=== PATIENT | male | born 1970 | race African-American/Black ===

== ENCOUNTER → 2017-09-06 | Emergency (ER) | payer OTHER ==
[~2017-09-06] VITALS: Ht 188 cm; Wt 231.3 kg
[~2017-09-06] MED LIST: ACETAMINOPHEN-1 EAC1 ORAL; ASPIRIN81 MG ORAL; AUGMENTIN 875-1 EAC1 ORAL; FUROSEMIDE20 M1 ORAL; FUROSEMIDE40 MG ORAL; HYDROcodone/Acetamin 10/325 tab ORAL ONE; IBUPROFEN600 MG ORAL; LISINOPRIL20 MG ORAL; LISINOPRIL40 MG ORAL; LISINOPRIL5 MG ORAL; METOPROLOL SUCC50 MG ORAL; TRUFORM COMPRE1 EACH MC
--- NOTE | 2017-09-06 17:39 | Emergency Room Report ---
History of Present Illness General Chief Complaint: Upper Extremity Injury Source: Patient Present Illness HPI 47-year-old male presents to the emergency department complaining of 8/10 in severity localized sharp/stabbing pain to the right hand at the base of the thumb x2 days. Patient states that he status post fall from couch when he was sleeping. Patient reports swelling, tenderness and constant pain. Patient denies open wounds, erythema, fevers, chills, increasing temperature to palpation. Denies neck or back pain. He is left-hand dominant. Denies numbness tingling or loss of sensation or gross motor movements of the extremities, incontinence of bowel or bladder. Denies CP, Palpitations, LOC, AMS , dizziness, Changes in Vision, Sensation, paresthesias, or a sudden severe headache. Allergies: Coded Allergies: No Known Allergies (Unverified , 02/15/15) Patient History Past Medical History: see triage record Past Surgical History: none Pertinent Family History: none Reviewed Nursing Documentation: PMH: Agreed, PSxH: Agreed Nursing Documentation-PMH Past Medical History: No History, Except For Hx Hypertension: Yes Hx Diabetes: Yes - Borderline Hx Cancer: No Hx Neurological Problems: No Review of Systems All Other Systems: negative except mentioned in HPI Physical Exam Vital Signs Date Time Temp Pulse Resp B/P (MAP) Pulse Ox O2 Delivery O2 Flow Rate FiO2 09/06/18 17:18 98.4 89 18 167/87 92 Room Air 98.4 Sp02 EP Interpretation: reviewed, normal General Appearance: no apparent distress, alert, GCS 15, non-toxic, obese Head: normocephalic, atraumatic ENT: hearing grossly normal, normal voice Neck: full range of motion Respiratory: lungs clear, normal breath sounds, speaking full sentences Cardiovascular #1: regular rate, rhythm, normal capillary refill Musculoskeletal: back normal, gait/station normal, normal range of motion, tender - Right hand TTP, Positive snuff box ttp and pain with axial loading, no erythema , mild swelling noted, NVI. Neurologic: alert, oriented x3, responsive, motor strength/tone normal, sensory intact, speech normal, grossly normal Psychiatric: judgement/insight normal Skin: normal color, no rash, warm/dry, well hydrated Medical Decision Making PA Attestation Dr. lantigua is my supervising Physician whom patient management has been discussed with. Diagnostic Impression: Primary Impression: Scaphoid fracture of wrist Qualified Codes: S62.009A - Unspecified fracture of navicular [scaphoid] bone of unspecified wrist, initial encounter for closed fracture Additional Impression: Hand pain, right ER Course 47-year-old male presents to the emergency department complaining of 8/10 in severity localized sharp/stabbing pain to the right hand at the base of the thumb x2 days. Patient states that he status post fall from couch when he was sleeping. Patient reports swelling, tenderness and constant pain. Patient denies open wounds, erythema, fevers, chills, increasing temperature to palpation. Denies neck or back pain. He is left-hand dominant. Denies numbness tingling or loss of sensation or gross motor movements of the extremities, incontinence of bowel or bladder. Denies CP, Palpitations, LOC, AMS , dizziness, Changes in Vision, Sensation, paresthesias, or a sudden severe headache. Ddx considered but are not limited to Fracture, dislocation, contusion, Sprain/ Strain/Spasm , scaphoid fracture. Vital signs: are WNL, pt. is afebrile H&PE are most consistent with musculoskeletal injury will perform imaging to r/ o fractures/dislocations. ORDERS: - X-ray Right hand 3 views - negative for fx, Dislocation, or significant soft tissue injury, per preliminary read in ED, and signed by MICAH Faust , my supervising physician has reviewed, and agrees with my interpretation. ED INTERVENTIONS: - PO Pain control. - Right Thumb Spika Splint applied by commercial hvac technician. Pt. remains neurovascularly intact. -d/w pt. the need for repeat hand x-rays by his pcp in 2-3 weeks to effectively rule in or out a scaphoid fracture. DISCHARGE: At this time pt. is stable for d/c to home. Will provide printed patient care instructions, and any necessary prescriptions. Care plan and follow up instructions have been discussed with the patient prior to discharge. Other X-Ray Diagnostic Results Other X-Ray Diagnostic Results : X-Ray ordered: Right Hand # of Views/Limited Vs Complete: 3 View Indication: Pain EP Interpretation: Yes MICAH Xray: Interpretation reviewed, by supervising MD, and agrees with findings. Interpretation: no dislocation, no soft tissue swelling, no fractures Impression: No acute disease Electronically Signed by: Rose Mary Faust PA-C Last Vital Signs Date Time Temp Pulse Resp B/P (MAP) Pulse Ox O2 Delivery O2 Flow Rate FiO2 09/06/17 17:18 98.4 89 18 167/87 92 Room Air 98.4 Disposition: HOME, SELF-CARE Condition: Stable Scripts Ibuprofen* (MOTRIN*) 600 Mg Tablet 600 MG ORAL THREE TIMES A DAY, #30 TAB 0 Refills Prov: Rose Mary Faust 09/06/17 Acetaminophen With Codeine (T#3) (TYLENOL #3 TAB*) Y Tab 2 TAB ORAL Q6H Y for For Pain, #10 TAB Prov: Rose Mary Faust 09/06/17 Patient Instructions: Scaphoid Fracture, Wrist Additional Instructions: Take medications as directed. Follow up with a Primary Care Provider in 3-5 days, even if your symptoms have resolved. --Please review list of primary care clinics, if you do not already have a primary care provider REPEAT X-RAYS TO EVAL FOR SCAPHOID FX in 2-3 weeks with your Primary Care Provider Return sooner to ED if new symptoms occur, or current symptoms become worse. Do not drink alcohol, drive, or operate heavy machinery while taking Tylenol #4 as this may cause drowsiness. - Please note that this Emergency Department Report was dictated using Signpostassistant press operator technology software, occasionally this can lead to erroneous entry secondary to interpretation by the dictation equipment. Rose Mary Faust Sep 06, 2017 17:39
[2017-09-06 19:23] VITALS: BP_SYST 152; BP_SYST 167; BP_DIAS 82; BP_DIAS 87
--- NOTE | 2017-09-07 09:09 | Diagnostic Imaging Report ---
Indications: Pain Technique: 3 views of the hand Comparison: None Findings: No acute fractures. No dislocations. Joint spaces are preserved. No radiopaque foreign body. Normal mineralization. Ossific density projects adjacent to the upper pole of the scaphoid. Impression: No acute process Ossific density adjacent to the upper pole of the scaphoid. Significance/etiology uncertain.
== END | disposition home or self-care (01) ==
LOC: EMR 17:50
DX: S62.001A Unspecified fracture of navicular [scaphoid] bone of right wrist, initial encounter for closed fracture (principal); W07.XXXA Fall from chair, initial encounter; Y92.9 Unspecified place or not applicable; I10 Essential (primary) hypertension
CPT/HCPCS: 99283

== ENCOUNTER 2017-11-10 22:43 | Emergency (ER) | payer OTHER ==
[~2017-11-10] VITALS: Ht 188 cm; Wt 254.0 kg
[~2017-11-10 22:43] MED LIST changes: -HYDROcodone/Acetamin 10/325 tab ORAL ONE
--- NOTE | 2017-11-10 23:10 | Emergency Room Report ---
History of Present Illness General Chief Complaint: Lower Extremity Injury Source: Patient Present Illness HPI Patient presents with complaints of discomfort to the back of the left leg Patient reports significant history of psoriasis He does recall scratching a specific area about one month ago since then he has slowly felt increased discomfort some discharge and foul smell Presents with concern of possible gangrene another infection denies any fevers Denies any chest pain or shortness of breath denies any back or flank pain Allergies: Coded Allergies: No Known Allergies (Unverified , 02/15/15) Patient History Past Medical History: see triage record Pertinent Family History: none Reviewed Nursing Documentation: PMH: Agreed; PSxH: Agreed Nursing Documentation-PMH Past Medical History: No History, Except For Hx Hypertension: Yes Hx Diabetes: Yes - Borderline Hx Cancer: No Hx Neurological Problems: No Review of Systems All Other Systems: negative except mentioned in HPI Physical Exam Vital Signs Date Time Temp Pulse Resp B/P (MAP) Pulse Ox O2 Delivery O2 Flow Rate FiO2 11/10/17 22:53 98.5 95 24 144/79 88 Room Air 98.4 Sp02 EP Interpretation: reviewed, normal General Appearance: no apparent distress Head: normocephalic, atraumatic Eyes: bilateral eye PERRL, bilateral eye EOMI ENT: normal pharynx Neck: other - Some kyphosis Respiratory: lungs clear, normal breath sounds Cardiovascular #1: regular rate, rhythm Gastrointestinal: soft, no mass Musculoskeletal: other - There is a approximately 1 x 1 cm area of mild erythema posterior to the left calf area, no obvious fluctuance no obvious gangrene Neurologic: alert, oriented x3 Skin: other - Patient has significant dependent edema, lymphedema bilaterally, significant psoriasis Medical Decision Making Diagnostic Impression: Primary Impression: Cellulitis of lower leg ER Course There is an area on the back of the left leg that appears to be consistent with early cellulitis I do not appreciate any obvious fluctuance Patient will have oral antibiotic provided here and placed on antibiotics for close outpatient follow-up Last Vital Signs Date Time Temp Pulse Resp B/P (MAP) Pulse Ox O2 Delivery O2 Flow Rate FiO2 11/10/17 22:53 98.5 95 24 144/79 88 Room Air 98.4 Status: improved Disposition: HOME, SELF-CARE Condition: Stable Additional Instructions: Patient is provided with the discharge instructions notified to follow up with primary doctor in the next 2-3 days otherwise return to the er with any worsening symptoms. Please note that this report is being documented using DRAGON technology. This can lead to erroneous entry secondary to incorrect interpretation by the dictating instrument. Jethro Magaña DO Nov 10, 2017 23:10
[2017-11-10] MEDS ORDERED: Cephalexin 500mg cap ORAL ONE (23:15)
[2017-11-10] MEDS ORDERED: Bactrim-DS 1 tab ORAL ONE (23:15)
[2017-11-10] MEDS ORDERED: BACTRIM DS TAB1 EAC1 ORAL (23:46)
[2017-11-10] MEDS ORDERED: KEFLEX500 MG ORAL (23:46)
[2017-11-11 00:10] VITALS: BP 142/77
== END 2017-11-11 00:10 | disposition home or self-care (01) ==
LOC: EMR 23:12
DX: L03.116 Cellulitis of left lower limb (principal); L03.115 Cellulitis of right lower limb; I10 Essential (primary) hypertension
CPT/HCPCS: 99282

== ENCOUNTER 2018-07-21 17:07 | Inpatient (IN) | payer OTHER ==
[~2018-07-21] VITALS: Ht 188 cm; Wt 308.4 kg
[~2018-07-21 17:07] MED LIST changes: +BACTRIM DS TAB1 EAC1 ORAL; +KEFLEX500 MG ORAL
[2018-07-21] MEDS ORDERED: Acetaminophen 500mg (ES) tab ORAL ONE (18:00)
--- NOTE | 2018-07-21 18:00 | Emergency Room Report ---
History of Present Illness General Chief Complaint: Pain Source: Patient (Jimmy Ochoa) Present Illness HPI 48-year-old male patient presents the ER complaining of bilateral leg edema for the past week. Reports pain in bilateral legs. Reports pain with ambulation. Reports history of CHF, states has not been taking his medication as he has been instructed to do. Denies injury or trauma. Denies fever, chest pain, shortness of breath. Also reports "checking out" episodes while sitting at the edge of his bed, consistent with syncopal episodes. Denies hitting his head. Denies dizziness. Denies other acute symptoms. Reports hx of sleep apnea. denies taking blood thinner medications. (Jimmy Ochoa) Allergies: Coded Allergies: No Known Allergies (Unverified , 02/15/15) Patient History Past Medical History: see triage record Reviewed Nursing Documentation: PMH: Agreed; PSxH: Agreed (Jimmy Ochoa) Nursing Documentation-PMH Past Medical History: No History, Except For Hx Hypertension: Yes Hx Diabetes: Yes - Borderline Hx Cancer: No Hx Neurological Problems: No (Jimmy Ochoa) Review of Systems All Other Systems: negative except mentioned in HPI (Jimmy Ochoa) Physical Exam Vital Signs Date Time Temp Pulse Resp B/P (MAP) Pulse Ox O2 Delivery O2 Flow Rate FiO2 07/21/18 17:17 98.8 94 21 101/62 93 Room Air Sp02 EP Interpretation: reviewed, normal General Appearance: well appearing, no apparent distress, alert, GCS 15, non- toxic Head: normocephalic, atraumatic Eyes: bilateral eye normal inspection, bilateral eye PERRL ENT: hearing grossly normal, normal pharynx, no angioedema, normal voice, uvula midline, moist mucus membranes Neck: full range of motion Respiratory: lungs clear, normal breath sounds, no rhonchi, no respiratory distress, no accessory muscle use, no wheezing, speaking full sentences Cardiovascular #1: regular rate, rhythm, edema - Bilateral lower legs Cardiovascular #2: 2+ dorsalis pedis (R), 2+ dorsalis pedis (L) Musculoskeletal: back normal, digits/nails normal, gait/station normal, normal range of motion, non-tender, no calf tenderness, Kristian's Sign negative Neurologic: alert, oriented x3, responsive, motor strength/tone normal, sensory intact (Jimmy Ochoa) Medical Decision Making PA Attestation Dr. Johnson is my supervising Physician whom patient management has been discussed with. (Jimmy Ochoa) Diagnostic Impression: Primary Impression: CHF exacerbation Qualified Codes: I50.43 - Acute on chronic combined systolic (congestive) and diastolic (congestive) heart failure Additional Impressions: Syncopal episodes Qualified Codes: R55 - Syncope and collapse Elevated troponin CO2 retention Morbid obesity Leukocytosis Qualified Codes: D72.829 - Elevated white blood cell count, unspecified ER Course Pt. presents to the ED c/o bilateral edema and pain times 1 week and multiple syncopal episodes while sitting in bed. Ddx considered but are not limited to CHF exacerbation, ACS, MO, pneumonia, influenza. Vital signs: are WNL, pt. is afebrile ER COURSE: Orthostatic vitals show no orthostatic hypotension. Chest x-ray shows likely CHF. EKG shows sinus rhythm, no ST elevations, right bundle branch block, provide patient with aspirin CBC elevated Troponin elevated BNP elevated, likely acute CHF exacerbation Provide patient with Lasix Discussed patient care with Dr. Johnson, ordered lactic acid, influenza swab, blood cultures,aspirin and nitropaste. Will admit patient for syncope, CHF exacerbation, elevated troponin. - Please note that this Emergency Department Report was dictated using XZERESmanufacturing team leader technology software, occasionally this can lead to erroneous entry secondary to interpretation by the dictation equipment. Labs Test 07/21/18 21:05 White Blood Count 16.4 K/UL (4.8-10.8) Red Blood Count 6.48 M/UL (4.70-6.10) Hemoglobin 15.1 G/DL (14.2-18.0) Hematocrit 48.5 % (42.0-52.0) Mean Corpuscular Volume 75 FL (80-99) Mean Corpuscular Hemoglobin 23.3 PG (27.0-31.0) Mean Corpuscular Hemoglobin Concent 31.2 G/DL (32.0-36.0) Red Cell Distribution Width 15.2 % (11.6-14.8) Platelet Count 265 K/UL (150-450) Mean Platelet Volume 8.2 FL (6.5-10.1) Neutrophils (%) (Auto) 80.0 % (45.0-75.0) Lymphocytes (%) (Auto) 6.0 % (20.0-45.0) Monocytes (%) (Auto) 6.9 % (1.0-10.0) Eosinophils (%) (Auto) 0.1 % (0.0-3.0) Basophils (%) (Auto) 7.0 % (0.0-2.0) Sodium Level 137 MMOL/L (136-145) Potassium Level 4.5 MMOL/L (3.5-5.1) Chloride Level 96 MMOL/L (98-107) Carbon Dioxide Level 39 MMOL/L (21-32) Anion Gap 3 mmol/L (5-15) Blood Urea Nitrogen 25 mg/dL (7-18) Creatinine 1.2 MG/DL (0.55-1.30) Estimat Glomerular Filtration Rate > 60 mL/min (>60) Glucose Level 118 MG/DL (74-106) Calcium Level 8.8 MG/DL (8.5-10.1) Total Bilirubin 1.1 MG/DL (0.2-1.0) Direct Bilirubin 0.5 MG/DL (0.0-0.3) Aspartate Amino Transf (AST/SGOT) 31 U/L (15-37) Alanine Aminotransferase (ALT/SGPT) 25 U/L (12-78) Alkaline Phosphatase 69 U/L (46-116) Total Creatine Kinase 182 U/L (26-308) Creatine Kinase MB 2.2 NG/ML (0.0-3.6) Creatine Kinase MB Relative Index 1.2 Troponin I 0.065 ng/mL (0.000-0.056) C-Reactive Protein, Quantitative 17.0 mg/dL (0.00-0.90) Pro-B-Type Natriuretic Peptide 2048 pg/mL (0-125) Total Protein 7.7 G/DL (6.4-8.2) Albumin 2.8 G/DL (3.4-5.0) Globulin 4.9 g/dL Albumin/Globulin Ratio 0.6 (1.0-2.7) (Jimmy Ochoa) ER Course Please see above note. I was directly involved with this patient's care. Patient has history of sleep apnea and laboratory 6 suggestive of CO2 retention. O2 saturation is low and the patient is begun on oxygen. A CO2 monitor was ordered. Patient had minimal response to initial dose of Lasix. Lasix was repeated. Aspirin and nitroglycerin paste was started. In addition Lovenox was given based on ideal body weight. Patient is admitted to stepdown unit to Dr. Bland. Influenza swab negative. Azithromycin begun for leukocytosis and hypoxia. (Vignesh Johnson MD) EKG Diagnostic Results Rate: normal Rhythm: NSR ST Segments: no acute changes Other Impression Incomplete right bundle branch block ASA given to the pt in ED: Yes PA Scribe Text Yovani Ochoa PA-C (Jimmy Ochoa P.A.) Rhythm Strip Diag. Results EP Interpretation: yes Rate: 90 Rhythm: NSR, no PVC's, no ectopy PA Scribe Text Yovani Ochoa PA-C (Jimmy Ochoa P.A.) EP Interpretation: yes Rhythm: NSR, no PVC's, no ectopy (Vignesh Johnson MD) Last Vital Signs Date Time Temp Pulse Resp B/P (MAP) Pulse Ox O2 Delivery O2 Flow Rate FiO2 07/21/18 17:17 98.8 94 21 101/62 93 Room Air (Jimmy Ochoa P.A.) Last Vital Signs Date Time Temp Pulse Resp B/P (MAP) Pulse Ox O2 Delivery O2 Flow Rate FiO2 07/21/18 22:27 101/62 07/21/18 18:06 98.8 75 21 93 Room Air Status: improved (Vignesh Johnson MD) Disposition: ADMITTED INPATIENT Condition: Serious Referrals: ONEYDA BHATTI,REFERRING (PCP) Jimmy Ochoa P.AMelvin Jul 21, 2018 18:00 Vignesh Johnson MD Jul 21, 2018 23:17
[2018-07-21 18:06] VITALS: BP 101/62
--- NOTE | 2018-07-21 18:06 | NUR ---
ED Nurse Note: Pt came to ER from home by WC wheeled by friend c/o BLE pain started about 10 days ago. pain level on BLE 04/28. Non raditaing. A + O x4. Skin warm to touch.
--- NOTE | 2018-07-21 18:45 | NUR ---
ED Nurse Note: Orthostatic hypotension Left forearm Laying 115/65 HR 88 sitting 133/84 HR 99 standing 142/89 HR 97
[2018-07-21 21:25] LABS: EOSINOPHILS % (AUTO) 0.1 % (0.0-3.0); HEMATOCRIT 48.5 % (42.0-52.0); HEMOGLOBIN 15.1 G/DL (14.2-18.0); MEAN CORPUSCULAR VOLUME 75 FL (80-99); MONOCYTES % (AUTO) 6.9 % (1.0-10.0); PLATELET COUNT 265 K/UL (150-450); RED BLOOD COUNT 6.48 M/UL (4.70-6.10); RED CELL DISTRIBUTION WIDTH 15.2 % (11.6-14.8); WHITE BLOOD COUNT 16.4 K/UL (4.8-10.8)
[2018-07-21 21:36] LABS: ANION GAP 3 mmol/L (5-15); BLOOD UREA NITROGEN 25 mg/dL (7-18); CALCIUM 8.8 MG/DL (8.5-10.1); CARBON DIOXIDE 39 MMOL/L (21-32); CHLORIDE 96 MMOL/L (98-107); CREATININE 1.2 MG/DL (0.55-1.30); POTASSIUM 4.5 MMOL/L (3.5-5.1); SODIUM 137 MMOL/L (136-145)
[2018-07-21 21:53] LABS: ALANINE AMINOTRANSFERASE 25 U/L (12-78); ALBUMIN 2.8 G/DL (3.4-5.0); ALBUMIN/GLOBULIN RATIO 0.6 (1.0-2.7); ALKALINE PHOSPHATASE 69 U/L (46-116); ASPARTATE AMINO TRANSFERASE 31 U/L (15-37); BILIRUBIN,TOTAL 1.1 MG/DL (0.2-1.0); CKMB 2.2 NG/ML (0.0-3.6); CREATINE KINASE 182 U/L (26-308)
[2018-07-21 21:55] LABS: BILIRUBIN,DIRECT 0.5 MG/DL (0.0-0.3)
[2018-07-21] MEDS ORDERED: Nitroglycerin 2% oint pkt TOPIC ONE (22:15)
--- NOTE | 2018-07-21 22:30 | NUR ---
ED Nurse Note: NTG patch on R chest area.
[2018-07-21] MEDS ORDERED: Enoxaparin 150mg Inj SUBQ STA (22:37)
[2018-07-21] MEDS ORDERED: Enoxaparin 150mg Inj SUBQ ONE (23:30)
[2018-07-21] MEDS ORDERED: Enoxaparin 60mg Inj SUBQ ONE ×2 (23:30→23:48)
--- NOTE | 2018-07-21 23:50 | NUR ---
ED Nurse Note: Phone with Pharmacy and discuss Lovenox has no 150 mg inj, Pharmacy recommend 60mg x 3 inj for total 180mg. Will over rid and co-sign with charge nurse
[2018-07-22] MEDS ORDERED: Azithromycin 500 MG in D5W 275 ML IVPB ONE ×2
[2018-07-22 00:19] LABS: APPEARANCE,URINE CLEAR; BILIRUBIN, URINE NEGATIVE (NEGATIVE); GLUCOSE, URINE (UA) NEGATIVE (NEGATIVE); KETONES,URINE NEGATIVE (NEGATIVE); LEUKOCYTE ESTERASE ,URINE 1+ (NEGATIVE); NITRITE,URINE NEGATIVE (NEGATIVE); PH,URINE 6 (4.5-8.0); PROTEIN,URINE 2+ (NEGATIVE); UROBILINOGEN,URINE 4 MG/DL (0.0-1.0)
[2018-07-22 00:21] LABS: COLOR,URINE YELLOW
[2018-07-22] MEDS ORDERED: Zolpidem 5mg tab ORAL PRN (00:30)
[2018-07-22] MEDS ORDERED: Milk of Magnesia 30ml Ud ORAL PRN (00:30)
[2018-07-22 01:15] VITALS: BP 108/61
--- NOTE | 2018-07-22 01:15 | NUR ---
ED Nurse Note: Inform Lab Pt needs Lactic acid level repeat.
--- NOTE | 2018-07-22 01:30 | NUR ---
NURSE NOTES: Report received from JUAN Garnett from ER. Belonging checked with the RN. Pt A/O x4. C/O pain at lower abdomen 04/28. Distraction measures done. Will continue to monitor on pain. VS T 98.3, BP 90/46, HR 83, Resp 30. SaO2 93 to 80s. Telemonitor on with SR. Pt on NC 2L with SaO2 fluctuating 90 to low 80s, pt alert and oriented x4, answering questions, and speech appropriate for the age. IV site on R AC heplock, intact and patent. pt has edema on bilateral lower legs and feet, pitting x2. Lower extremities elevated. Bed in the lowest position. call light within reach. Will continue to monitor.
--- NOTE | 2018-07-22 01:30 | NUR ---
ED Nurse Note: Admit Pt to ANGE room 243-2. Pt is AO x 4times, VSS, on room air no distress. Belongings and skin check with floor RN. Report given to JUAN Santillan.
--- NOTE | 2018-07-22 03:00 | NUR ---
NURSE NOTES: Observed pt sleeping on the bed. V/S within normal range. No acute distress noted at this time.
[2018-07-22 04:00] VITALS: BP 129/49
--- NOTE | 2018-07-22 06:54 | NUR ---
NURSE NOTES: Left a message to regarding pt having SOB and desating to 80s'. Awaiting call back. Observed pt sleeping on the bed. other vs within normal range. arousable by voice. Will continue to monitor.
--- NOTE | 2018-07-22 07:10 | NUR ---
NURSE NOTES: RECEIVED BED SIDE REPORT FROM VITA TOOL SHARPENER OF NOC SHIFT .RECEIVED PT RESTING IN BED QUIETLY AWAKE AND ALERT ,USING O2 2 l/mints VIA N/C ,O2 SAT 91%.PT ADMITTED WITH Dx OF CHF EXACERBATION,SYNCOPE.PT IS FULL CODE .PT HAS A Hx OF SLEEP APNEA AND COPD.PT WITH PITTING EDEMA ON BILAT LOWER EXTREMITIES NOTED.FULL BODY ASSESSMENT DONE.WILL CONT TO MONITOR.
--- NOTE | 2018-07-22 07:46 | NUR ---
HAND-OFF: Report given to JUAN Morelos. Observed pt watching TV. No aucte distress noted.
[2018-07-22 08:00] VITALS: BP 131/94
[2018-07-22] MEDS ORDERED: Lisinopril 20mg tab ORAL SCH (09:00)
[2018-07-22] MEDS: Aspirin Baby 81mg ORAL SCH (09:26)
[2018-07-22] MEDS: Heparin 5000 units/ml inj SUBQ SCH ×2 (09:29→21:18)
--- NOTE | 2018-07-22 10:12 | NUR ---
Rehab/PT Note: P.T evaluation complete. POC initiated. Please refer to P.T evaluation for current functional status. Skilled P.T service is warranted to improve strength and endurance to increase functional activity tolerance safety and independence during stay. Addendum: 07/22/18 at 1012 by JOSEPH MACIAS PT Amended: Links added.
--- NOTE | 2018-07-22 11:25 | Diagnostic Imaging Report ---
Indication: Chest pain Comparison: 02/17/2015 A single view chest radiograph was obtained. Findings: Pulmonary vascular congestion demonstrated. No obvious interstitial edema present. The heart is mildly enlarged. Bones are unremarkable. IMPRESSION: Mild pulmonary vascular congestion may be present. Correlate clinically
[2018-07-22 12:00] VITALS: BP 138/81
--- NOTE | 2018-07-22 12:00 | NUR ---
NURSE NOTES: DR BRITO CAME TO SEE THE PT AND MADE AWARE AND NOTIFIED REGARDING PT HAVING SOB ON EXERTION AND SAT IS 89 TO 90 0N 2L/MITS VIA N/C. ORDER AGB,S .ALL NEW ORDERS NOTED AND CARRIED OUT.WILL CONT TO MONITOR.
--- NOTE | 2018-07-22 12:55 | NUR ---
CASE MANAGEMENT: REVIEW 48/M BIBA FROM HOME CC: PAIN SI: CHF EXACERBATION . SYNCOPE T 98.2 HR 77 RR 26 BP 129/49 SAT 88% NC/2L ABG: PH 7.343 PCO2 73.1 PO2 56.5 HCO3 38.85 O2 SAT 86.5 IS: LASIX IV X1 TYLENOL PO X1 ASA PO X1 NITRO-BID TOPICAL X1 LOVENOX SQ X1 AZITHROMYCIN IV X1 INTERQUAL CRITERIA MET: PATIENT ADMITTED STEP DOWN UNIT 07/21/2018 DCP: PATIENT IS FROM HOME CASE MANAGEMENT: REVIEW SI: CHF EXACERBATION . SYNCOPE T 98.0 HR 89 RR 26 BP 129/49 SAT 90% NC/2L ABG: PH 7.343 PCO2 73.1 PO2 56.5 HCO3 38.8 O2 SAT 86.5 IS: LISINOPRIL PO QD HEPARIN SQ Q12HR ASA PO QD LASIX IV BID STEP DOWN STATUS DCP: PATIENT IS FROM HOME
--- NOTE | 2018-07-22 13:30 | NUR ---
NURSE NOTES: DR KIM FROM [facility] CAME TO SEE THE PT AND ASSESSED THE PT AND ABG,S REPORT GIVEN TO ORDER TO PLACE PT ON BIPAP ,SETTINGS 12/5 ,BACK UP 20 AND FIO2 30%.RUI CID PLACED THE PT ON BIPAP PER Valerie ORDERS.WILL CONT TO MONITOR.
--- NOTE | 2018-07-22 13:40 | History & Physical ---
History and Physical History & Physicial HP dictated #[id number] Mayco Bland MD Jul 22, 2018 13:40
--- NOTE | 2018-07-22 13:51 | Consultation ---
Consult Note Assessment/Plan DICT # [id number] Wiliam Bowers MD Jul 22, 2018 13:51
[2018-07-22 16:00] VITALS: BP 127/80
--- NOTE | 2018-07-22 16:16 | NUR ---
INSURANCE AVAILABLE CLINICALS AND REVIEWS FAXED TO: [facility]:STACI P- [phone] X [phone] F- [phone]
--- NOTE | 2018-07-22 18:45 | NUR ---
NURSE NOTES:PT PLACED ON BARIATRIC BED.SMALL AMT BLOOD ON PERINEAL AREA NOTED.WASHED PERINEAL AREA WITH SOAP AND WATER PAT DRY.PT STATED THAT SHAVE THE PERINEAL AREA.NO ACTIVE BLEEDING NOTED AT THIS TIME.WILL CONT TO MONITOR.
--- NOTE | 2018-07-22 19:30 | NUR ---
NURSE NOTES: pt received from JUAN Morelos. Observed pt lying on bed, talking with family member on bedside. Pt is A/O x 4 and denies pain at this time. SR with manager architecture on. pt is on prn bipap 12/5, FiO2 50%, saturating at 96%. IV site on R AC heplock, asymptomatic. Bed in the lowest position. Call light within reach. Side rails up x2. Will continue to monitor.
[2018-07-22 20:00] VITALS: BP 146/60
--- NOTE | 2018-07-22 20:27 | Cardiology Progress Note ---
Assessment/Plan Assessment/Plan [id number] decreae bp med to have room for diuresis pulm treatment per dr rivera ekg trop repeat watch for hyptension in setting of hyperdynamic systolic fucntion to reviewe echo Objective Last 24 Hour Vital Signs Date Time Temp Pulse Resp B/P (MAP) Pulse Ox O2 Delivery O2 Flow Rate FiO2 07/22/18 19:59 78 16 97 Facial 40 07/22/18 17:21 83 26 94 Facial 60 07/22/18 16:00 97.9 74 26 127/80 (96) 96 07/22/18 16:00 60 07/22/18 16:00 73 07/22/18 15:04 88 43 95 Facial 50 07/22/18 13:05 70 22 94 Facial 30 07/22/18 13:00 30 07/22/18 12:00 97.7 78 28 138/81 (100) 92 07/22/18 12:00 82 07/22/18 11:18 98.2 07/22/18 09:27 131/94 07/22/18 09:00 Nasal Cannula 2.0 07/22/18 08:00 86 07/22/18 08:00 98.2 89 24 131/94 (106) 90 07/22/18 04:00 98.0 85 26 129/49 (75) 97 07/22/18 02:20 77 07/22/18 02:20 Nasal Cannula 2.0 07/22/18 02:06 Nasal Cannula 2.0 07/22/18 01:30 98.7 87 20 108/61 88 Room Air 2.0 07/22/18 01:15 98.7 87 20 108/61 88 Room Air 2.0 07/21/18 22:27 101/62 Intake and Output 07/21/18 07/22/18 18:59 06:59 Output Total 550 ml Balance -550 ml Output Urine Total 550 ml # Voids 2 # Bowel Movements 2 Laboratory Tests Test 07/21/18 21:05 07/21/18 23:41 07/22/18 00:10 07/22/18 07:04 White Blood Count 16.4 K/UL (4.8-10.8) H Red Blood Count 6.48 M/UL (4.70-6.10) H Hemoglobin 15.1 G/DL (14.2-18.0) Hematocrit 48.5 % (42.0-52.0) Mean Corpuscular Volume 75 FL (80-99) L Mean Corpuscular Hemoglobin 23.3 PG (27.0-31.0) L Mean Corpuscular Hemoglobin Concent 31.2 G/DL (32.0-36.0) L Red Cell Distribution Width 15.2 % (11.6-14.8) H Platelet Count 265 K/UL (150-450) Mean Platelet Volume 8.2 FL (6.5-10.1) Neutrophils (%) (Auto) 80.0 % (45.0-75.0) H Lymphocytes (%) (Auto) 6.0 % (20.0-45.0) L Monocytes (%) (Auto) 6.9 % (1.0-10.0) Eosinophils (%) (Auto) 0.1 % (0.0-3.0) Basophils (%) (Auto) 7.0 % (0.0-2.0) H Sodium Level 137 MMOL/L (136-145) Potassium Level 4.5 MMOL/L (3.5-5.1) Chloride Level 96 MMOL/L (98-107) L Carbon Dioxide Level 39 MMOL/L (21-32) H Anion Gap 3 mmol/L (5-15) L Blood Urea Nitrogen 25 mg/dL (7-18) H Creatinine 1.2 MG/DL (0.55-1.30) Estimat Glomerular Filtration Rate > 60 mL/min (>60) Glucose Level 118 MG/DL (74-106) H Calcium Level 8.8 MG/DL (8.5-10.1) Total Bilirubin 1.1 MG/DL (0.2-1.0) H Direct Bilirubin 0.5 MG/DL (0.0-0.3) H Aspartate Amino Transf (AST/SGOT) 31 U/L (15-37) Alanine Aminotransferase (ALT/SGPT) 25 U/L (12-78) Alkaline Phosphatase 69 U/L (46-116) Total Creatine Kinase 182 U/L (26-308) Creatine Kinase MB 2.2 NG/ML (0.0-3.6) Creatine Kinase MB Relative Index 1.2 Troponin I 0.065 ng/mL (0.000-0.056) 0.037 ng/mL (0.000-0.056) C-Reactive Protein, Quantitative 17.0 mg/dL (0.00-0.90) H Pro-B-Type Natriuretic Peptide 2048 pg/mL (0-125) H Total Protein 7.7 G/DL (6.4-8.2) Albumin 2.8 G/DL (3.4-5.0) L Globulin 4.9 g/dL Albumin/Globulin Ratio 0.6 (1.0-2.7) L Lactic Acid Level 2.40 mmol/L (0.4-2.0) H 1.40 mmol/L (0.66-2.22) Urine Color Yellow Urine Appearance Clear Urine pH 6 (4.5-8.0) Urine Specific [place] 1.010 (1.005-1.035) Urine Protein 2+ (NEGATIVE) H Urine Glucose (UA) Negative (NEGATIVE) Urine Ketones Negative (NEGATIVE) Urine Blood Negative (NEGATIVE) Urine Nitrite Negative (NEGATIVE) Urine Bilirubin Negative (NEGATIVE) Urine Urobilinogen 4 MG/DL (0.0-1.0) H Urine Leukocyte Esterase 1+ (NEGATIVE) H Urine RBC 0-2 /HPF (0 - 0) H Urine WBC 0-2 /HPF (0 - 0) Urine Squamous Epithelial Cells None /LPF (NONE/OCC) Urine Bacteria None /HPF (NONE) Test 07/22/18 12:40 Arterial Blood pH 7.343 (7.350-7.450) Arterial Blood Partial Pressure CO2 73.1 mmHg (35.0-45.0) *H Arterial Blood Partial Pressure O2 56.5 mmHg (75.0-100.0) L Arterial Blood HCO3 38.8 mmol/L (22.0-26.0) H Arterial Blood Oxygen Saturation 86.5 % (95-100) *L Arterial Blood Base Excess 9.8 (-2-2) *H Peter Test Positive Microbiology Date/Time Source Procedure Growth Status 07/21/18 23:13 Nasal Nares Influenza Types A,B Antigen (NELLA) - Final Complete Hima Angel MD Jul 22, 2018 20:27
[2018-07-23] VITALS (10 sets, daily range): BP systolic 83–141; BP diastolic 43–83
--- NOTE | 2018-07-23 | NUR ---
NURSE NOTES: Observed pt sleeping on the bed. VS within normal limit, Saturating at 95%. No acute distress noted at this time.
--- NOTE | 2018-07-23 00:42 | Consultation ---
DATE OF CONSULTATION: 07/22/2018 PULMONARY CONSULTATION CONSULTING PHYSICIAN: Wiliam Bowers M.D. REFERRING PHYSICIAN: Mayco Bland M.D. REASON FOR CONSULTATION: Respiratory failure. HISTORY OF PRESENT ILLNESS: The patient is a morbidly obese 48-year-old male with a history of untreated obstructive sleep apnea and congestive heart failure, noncompliant with medications, who presented to the ER with increasing bilateral lower extremity edema, syncopal episode, shortness of breath, PND, and orthopnea for the past week. He states that he has not followed up with doctors for quite a while and is not taking any medications at home. He does have a CPAP machine, but states that he stopped using it several years ago. Of note, he does have multiple medications on his medication list, but he tells me that he has not been using any. He denies any cough, wheezing, or congestion. No fevers, chills, headaches, dizziness, nausea, vomiting, diarrhea, constipation, abdominal pain, or urinary complaints. PAST MEDICAL HISTORY: 1. Congestive heart failure. 2. Obstructive sleep apnea. 3. Hypertension. 4. Hyperlipidemia. 5. Morbid obesity. PAST SURGICAL HISTORY: He denies. MEDICATIONS: Prior to admission medications, reviewed. Current medications, reviewed. ALLERGIES: No known drug allergies. SOCIAL HISTORY: No tobacco, alcohol, or drug use. FAMILY HISTORY: Noncontributory. REVIEW OF SYSTEMS: Negative other than history of present illness. PHYSICAL EXAMINATION: VITAL SIGNS: Temperature 98, pulse 85, blood pressure 129/49, respiratory rate 26, and saturating 90% on 3 liters. GENERAL: He is a morbidly obese male, in no acute distress. Awake, alert, and oriented x3. HEENT: Normocephalic and atraumatic. Oropharynx clear. NECK: Supple without lymphadenopathy. CHEST: Coarse bilateral breath sounds. Distant. Bibasilar rales. HEART: Regular rate and rhythm. ABDOMEN: Soft, nontender, and nondistended. EXTREMITIES: No cyanosis. There is 2+ edema. ANCILLARY DATA: White count 16.4, hemoglobin 15.1, and platelet count of 265,000. ABG 7.34/73/56/38/86. Sodium 137, potassium , chloride 96, bicarb 39, BUN 25, creatinine 1.2, and glucose 118. Lactic acid 2.4, 1.4. Calcium 8.8. Total bilirubin 1.1, direct 0.5. AST 31, ALT 25, and alkaline phosphatase 69. CK 182. Troponin 0.065, 0.037. CRP 17. BNP 2048. Total protein 7.7. Albumin 2.7. Urinalysis, 2+ protein, 4+ urobilinogen, and 1+ leukocyte esterase. Influenza A and B is negative. Chest x-ray done and reviewed by myself shows mild pulmonary vascular congestion. No infiltrates or other abnormalities. ASSESSMENT: The patient is a 48-year-old male with a history of morbid obesity, DANII, noncompliant with CPAP, congestive heart failure, hypertension, hyperlipidemia with a history of medication noncompliance, presenting with shortness of breath in the setting of decompensated heart failure. He has evidence of a chronic respiratory failure secondary to his untreated DANII/obesity hypoventilation. PROBLEM LIST: 1. Chronic hypercapnic respiratory failure. 2. Hypoxemia secondary to above. 3. DANII, noncompliant with CPAP. 4. CHF, admitted with decompensated heart failure. 5. Morbid obesity. 6. Likely obesity, hypoventilation. 7. Hypertension, hyperlipidemia. 8. History of medication noncompliance. 9. Leukocytosis. TREATMENT PLAN: 1. BiPAP 12/5 at bedtime and p.r.n. 2. The patient needs to be compliant with NIPPV as an outpatient. 3. Follow up echocardiogram. 4. Monitor volumes and renal function. 5. Diuresis as tolerated. 6. Monitor off antibiotics for signs of a infectious process. 7. Follow up cultures. 8. DVT prophylaxis with heparin subcutaneous. 9. Follow up duplex. 10. PT/OT. 11. Discuss weight loss, diet, and exercise. 12. The patient needs outpatient follow-up. Dr. Bland, thank you for allowing us to assist in the care of your patient. If we may be of any assistance in the future, please do not hesitate to ask. Wiliam Bowers M.D. DR: MEREDITH JOB#: [id number] CC:
--- NOTE | 2018-07-23 00:42 | History and Physical Report ---
DATE OF ADMISSION: 07/21/2018 CHIEF COMPLAINT: Shortness of breath. HISTORY OF PRESENT ILLNESS: This is a 48-year-old male with some morbid obesity. He was brought into the emergency room for shortness of breath. The patient apparently has had this problem for a few days now. The patient was diagnosed of CHF exacerbation. The patient has also history of sleep apnea. He is a poor historian. When he was talking to me, he would just go to sleep and wake up again. PAST MEDICAL HISTORY: The patient denies history of COPD, but he looks pickwickian and has also history of sleep apnea. The patient has history of hypertension. MEDICATIONS: Reviewed in the EMR. SOCIAL HISTORY: The patient lives at home. He denies history of smoking or alcohol abuse. ALLERGIES: No known drug allergies. REVIEW OF SYSTEMS: Noncontributory. PHYSICAL EXAMINATION: GENERAL: The patient is a morbidly obese male, in no acute distress. VITAL SIGNS: Blood pressure 101/62, pulse 94, respiratory rate 21, temperature 98.8. HEENT: [place] conjunctivae. Anicteric sclerae. NECK: Supple. LUNGS: Coarse breath sounds bilaterally. ABDOMEN: Soft, nontender. EXTREMITIES: Bilateral pedal edema. LABORATORY FINDINGS: The CBC shows WBC of 16,400, hematocrit 48.5, hemoglobin 15.1, platelets 265,000. The chemistry panel shows serum sodium 137, potassium 4.5, chloride 96, CO2 39, BUN 25, creatinine 1.2. Troponin was negative x2. BNP was 2048. UA was unremarkable except 2+ protein. ASSESSMENT: This is a 48-year-old male, who is admitted with CHF exacerbation. He looks pickwickian as mentioned with morbid obesity. He very likely has hypoventilation syndrome and I am assuming that he would also have CO2 retention. He is drowsy when he is trying to talk to me. The patient has history of hypertension. PLAN: The patient will be on diuretics, IV Lasix, bronchodilators, oxygen. CPAP will be ordered. The patient will be seen by Dr. Bowers for Pulmonary. Laboratories will be followed and adjustments will be made in the patient's regimen. Myaco Bland M.D. DR: Joel JOB#: [id number] CC:
--- NOTE | 2018-07-23 00:42 | Consultation ---
DATE OF CONSULTATION: 07/22/2018 CARDIOLOGY CONSULTATION CONSULTING PHYSICIAN: Hima Angel M.D. REASON FOR EVALUATION AND MANAGEMENT: Possible congestive heart failure. HISTORY OF PRESENT ILLNESS: This is a 48-year-old gentleman with a history of morbid obesity. He was diagnosed with sleep apnea, possibly has a history of heart failure. The patient was admitted to the hospital because of leg edema, and apparently he has pain with ambulation. He reported to the emergency room that he has congestive heart failure. He has not been taking his medications as he has been instructed to do so. Denies any chest pain or shortness of breath in the emergency room and apparently indicated that a few years back he passed out while sitting at the edge of the bed. No head trauma. On questioning, the patient does not have any chest pain on exertion. He does have some shortness of breath on exertion. He uses 3 or 4 pillows under his legs, not underneath his head, he says. He has no palpitations. He has occasional dizziness. No lightheadedness. PAST MEDICAL HISTORY: Positive for diabetes. He does not have any high blood pressure. No history of heart attack. No cancer. No stroke. No hepatitis or tuberculosis. No asthma or emphysema. No ulcers. No kidney problems, liver problems, thyroid problems, anemia, arthritis, HIV. He does admit to having had blood clots in his legs previously. No history of blood clots in his lungs. No prostate problems. As mentioned, he reports a history of possible congestive heart failure. He does admit on questioning he has been told that he had some weakened heart muscle. REVIEW OF SYSTEMS: GASTROINTESTINAL: He denies. GENITOURINARY: He denies. PULMONARY: He does have coughing. CONSTITUTIONAL: Denies. NEUROLOGIC: Negative. PHYSICAL EXAMINATION: GENERAL: Shows a morbidly obese middle-aged gentleman, in no respiratory distress. LUNGS: Appear to have breath sounds bilaterally. CARDIAC: Regular rate. No heaves or thrills noted. ABDOMEN: Soft. Obese. Positive bowel sounds. EXTREMITIES: Lymphedema and chronic venous stasis changes in the lower extremities are noted. NEUROLOGICAL: He is arousable and responsive, but easily falls asleep during conversation and needs to be woken up. LABORATORY AND DIAGNOSTIC DATA: Laboratory values, white count is 16.4, hemoglobin 15, and platelet count 265. The pH is 7.34, pCO2 of 73, pO2 of 56, bicarbonate 38, his oxygen saturation on room air of 86%. Sodium 137, potassium 4.5, chloride 96, bicarb 39, BUN 25, creatinine 1.2, and glucose of 118. Lactic acid initially 2.4 and subsequently 1.4. Troponin initially 0.065, subsequent 0.037, CRP of 17 and proBNP of 2048. Urinalysis is apparently unremarkable. Chest x-ray as per Radiology shows mild pulmonary vascular congestion. EKG in the emergency room, copy is not available for me to review. Telemetry shows sinus rhythm strips. No electrocardiograms available for review. ASSESSMENT AND PLAN: 1. Morbid obesity. 2. Probable obesity hypoventilation syndrome. 3. Sleep apnea. 4. Lymphedema. 5. Right heart failure, probably secondary to above. Dr. Bland, this patient was seen in cardiac consultation. The patient really does not have any chest pain. Repeat EKG will be ordered. Echocardiogram has been performed, and preliminary report showed hyperdynamic LV systolic function, moderate left ventricular hypertrophy with dilated IVC and PA pressure was estimated only about 44% but because was only trace, likely an underestimation of pulmonary hypertension. He may not be able to tolerate the diuretics in light of his left ventricular hypertrophy. If his LV function is truly hyperdynamic, diuresis should be performed gingerly as his blood pressure allows. His blood pressure at the time of initial presentation was 101/62, and he was indicating some episodes of what he reported as passing out, although that may be sleep apnea. Other etiologies such as syncope need to be excluded during the time that I was with him. He did have episodes of falling asleep and easily arousable on calling his name and those were not episodes of syncope. His medications should be titrated downwards to allow more room for diuretics if needed that prevents hypotension episodes, and he should likely have some venous duplex of his lower extremities as well if not performed. Hima Angel M.D. DR: Nivia JOB#: [id number] CC:
--- NOTE | 2018-07-23 06:40 | NUR ---
NURSE NOTES: Observed pt having altered mental status, agitated, took off his gown, media monitor, bipap mask, and IV. Blood sugar 118. notified and ABG stat ordered. Will continue to monitor.
--- NOTE | 2018-07-23 07:30 | NUR ---
NURSE NOTES: Received patient from JUAN Santillan. Patient was reportedly alert and oriented last night. Now patient was confused this morning. Patient knows his name but does not know where he is. Patient pulled off his monitor, BiPAP, and IV at this time. Patient needs an EKG at this time. Patient was refusing. Will follow up and perform EKG when possible. Patient has an ABG ordered at this time. Will follow up. Patient has an order for BiPAP PRN and at night continuous /. Will put IV in and monitor on when patient allows. Patient is more agreeable at this time. Prior to episode of confusion, patient showing SR with 1st degree block on the monitor. Patient on regular, low Na diet. Patient uses urinal at this time. Patient skin intact at this time. Will continue to monitor. Patient 2D echo is 70-75% at this time. Will perform EKG at this time. Patient bed in low position with bed alarm on and call light in reach at this time.
--- NOTE | 2018-07-23 07:30 | NUR ---
HAND-OFF: Report given to JUAN Fernández. Noted pt having altered mental status. MD aware and ABG was done on the bedside.
--- NOTE | 2018-07-23 08:00 | NUR ---
NURSE NOTES: EKG obtained at this time. Patient placed on continuous BiPAP at this time.
[2018-07-23] MEDS ORDERED: Lisinopril 20mg tab ORAL SCH (09:00)
[2018-07-23] MEDS: Aspirin Baby 81mg ORAL SCH (09:07)
[2018-07-23] MEDS: Heparin 5000 units/ml inj SUBQ SCH ×3 (09:09→23:13)
[2018-07-23 10:38] LABS: CHOLESTEROL 103 MG/DL (< 200); HDL CHOLESTEROL 23 MG/DL (40-60); TRIGLYCERIDES 62 MG/DL (30-150)
--- NOTE | 2018-07-23 12:30 | NUR ---
NURSE NOTES: Patient taken off BiPAP and placed on 4L NC while eating.
--- NOTE | 2018-07-23 12:34 | NUR ---
P.T Note: P.T services deferred today due to O2 desaturation and abnormal ABG. Patient currently on continues BIPAP machine. Will follow up tomorrow when/as stable.
--- NOTE | 2018-07-23 13:30 | NUR ---
NURSE NOTES: Patient placed back on continuous BiPAP.
--- NOTE | 2018-07-23 14:42 | General Progress Note ---
Assessment/Plan Problem List: (1) CHF exacerbation ICD Codes: I50.9 - Heart failure, unspecified SNOMED: 64062530, 896431713, 398971532 Qualifiers: Qualified Codes: I50.43 - Acute on chronic combined systolic (congestive) and diastolic (congestive) heart failure (2) Morbid obesity ICD Codes: E66.01 - Morbid (severe) obesity due to excess calories SNOMED: 272445033 (3) Hypertension ICD Codes: I10 - Essential (primary) hypertension SNOMED: 96064368 (4) CO2 retention ICD Codes: E87.2 - Acidosis SNOMED: 34607063, 980674077 (5) Diabetes mellitus ICD Codes: E11.9 - Diabetes mellitus SNOMED: 45015275 (6) Obesity hypoventilation syndrome ICD Codes: E66.2 - Morbid (severe) obesity with alveolar hypoventilation SNOMED: 179519403 Assessment/Plan cont BIPAP diuresis abxs Discussed with RN Subjective Allergies: Coded Allergies: No Known Allergies (Unverified , 02/15/15) Subjective on BIPAP Objective Last 24 Hour Vital Signs Date Time Temp Pulse Resp B/P (MAP) Pulse Ox O2 Delivery O2 Flow Rate FiO2 07/23/18 12:00 98.2 75 22 141/77 (98) 100 07/23/18 11:54 79 07/23/18 11:01 75 19 100 Facial 100 07/23/18 09:07 136/83 07/23/18 09:01 98 21 98 Facial 100 07/23/18 08:00 78 07/23/18 08:00 98.4 82 23 136/83 (100) 90 07/23/18 04:54 66 20 95 Facial 50 07/23/18 04:00 97.4 75 20 133/71 (91) 97 07/23/18 04:00 Bi-pap 07/23/18 04:00 74 07/23/18 04:00 50 07/23/18 02:47 77 32 96 Facial 50 07/23/18 00:58 77 21 96 Facial 50 07/23/18 00:00 50 07/23/18 00:00 Bi-pap 07/23/18 00:00 98.0 68 20 127/72 (90) 100 07/23/18 00:00 74 07/22/18 22:50 73 25 99 Facial 50 07/22/18 20:51 75 16 95 Facial 50 07/22/18 20:00 98.0 84 20 146/60 (88) 100 07/22/18 20:00 Bi-pap 07/22/18 20:00 40 07/22/18 20:00 83 07/22/18 19:59 78 16 97 Facial 40 07/22/18 17:21 83 26 94 Facial 60 07/22/18 16:00 97.9 74 26 127/80 (96) 96 07/22/18 16:00 60 07/22/18 16:00 73 07/22/18 15:04 88 43 95 Facial 50 Intake and Output 07/22/18 07/23/18 19:00 07:00 Intake Total 200 ml 900 ml Output Total 800 ml 1300 ml Balance -600 ml -400 ml Intake Oral 200 ml 900 ml Output Urine Total 800 ml 1300 ml Laboratory Tests 07/23/18 07:55: Arterial Blood pH 7.211*L, Arterial Blood Partial Pressure CO2 122.7*H, Arterial Blood Partial Pressure O2 38.2*L, Arterial Blood HCO3 48.1*H, Arterial Blood Oxygen Saturation 70.3*L, Arterial Blood Base Excess 13.9*H, Peter Test Positive 07/23/18 10:00: Troponin I 0.003, Triglycerides Level 62, Cholesterol Level 103, LDL Cholesterol 84, HDL Cholesterol 23L, Cholesterol/HDL Ratio 4.5H Height (Feet): 6 Height (Inches): 2.00 Weight (Pounds): 680 Cardiovascular: normal rate Respiratory/Chest: rhonchi - bilaterally Edema: 1+ Generalized Mayco Bland MD Jul 23, 2018 14:42
--- NOTE | 2018-07-23 14:46 | NUR ---
CASE MANAGEMENT: REVIEW SI: CHF EXACERBATION . SYNCOPE T 98.2 HR 75 RR 22 BP 141/77 SAT 100% BIPAP FIO2 100 IS: LISINOPRIL PO QD HEPARIN SQ Q12HR ASA PO QD LASIX IV BID STEP DOWN STATUS DCP: PATIENT IS FROM HOME
--- NOTE | 2018-07-23 15:17 | NUR ---
RD ASSESSMENT & RECOMMENDATIONS SEE CARE ACTIVITY FOR COMPLETE ASSESSMENT DAILY ESTIMATED NEEDS: Needs based on Morbidy obesity, cardiac 22-25kg IBW (86kg) kcals/kg 8280-3760 total kcals 2-2.5g/kg IBW g protein/kg 172-215 g total protein Fluid per MD/ on lasix NUTRITION DIAGNOSIS: * Morbid obesity R/T unknown etiology, life style factors, excessive energy intake as evidenced by BMI >80. * Altered nutrition related lab values R/T CHF, clinical condition as evidenced by elev T bili, elev BNP (2047), critically elev PCO2, HCO3 and critically low pH, pO2. CURRENT DIET: REGULAR PO DIET RECOMMENDATIONS: CARDIAC, CCHO MED/ texture as tolerated ADDITIONAL RECOMMENDATIONS: * If pt able to stand, rec to obtain standing wt for accurate CBW * A1C for eval of glycemic control- borderline DM dx * Monitor PO intake and tolerance- on BIPAP * Monitor lytes closely on lasix, replete as needed
--- NOTE | 2018-07-23 17:00 | NUR ---
NURSE NOTES: Patient thought to be sleeping at this time. Dr Bowers went to examine the patient and the patient was unarousable. After multiple attempts to arouse him, patient still unable to be aroused. Patient saturation stable. Patient VS stable. HR is sinus rhythm at this time. Dr Bowers ordered stat ABG.
--- NOTE | 2018-07-23 17:27 | Pulmonolgy Critical Care Note ---
Critical Care - Asmt/Plan Problems: (1) Lymphedema (2) Pulmonary hypertension (3) DANII (obstructive sleep apnea) (4) Acute on chronic respiratory failure with hypoxia and hypercapnia (5) Obesity hypoventilation syndrome (6) Obesity (7) CO2 retention (8) Leukocytosis (9) Cellulitis of lower leg (10) Diabetes mellitus (11) Hypertension Assessment/Plan: ASSESSMENT: The patient is a 48-year-old male with a history of morbid obesity , DANII, noncompliant with CPAP, congestive heart failure, hypertension, hyperlipidemia with a history of medication noncompliance, presenting with shortness of breath in the setting of decompensated heart failure. He has evidence of a chronic respiratory failure secondary to his untreated DANII/ obesity hypoventilation. PROBLEM LIST: 1. Chronic hypercapnic respiratory failure. 2. Hypoxemia secondary to above. 3. DANII, noncompliant with CPAP. 4. CHF, admitted with decompensated heart failure. 5. Morbid obesity. 6. Likely obesity, hypoventilation. 7. Hypertension, hyperlipidemia. 8. History of medication noncompliance. 9. Leukocytosis. 10. LE lymphedema 11. Likely superimposed cellulitis 12. Pulmonary HTN TREATMENT PLAN: Transfer to ICU Increase BiPAP to 20/5 Recheck ABG in 2 hours May need to be intubated Monitor volumes and renal function, avoid overdiuresis, likely component of preload dependance Start IV Vanco for LE cellulitis F/U Cx' Repeat labs ordered F/U Duplex F/U cardiology and renal recs DVT Px: hep SQ NPO FC D/W ANGE and RELIEF PHARMACIST D/W RT D/W cousin @ bedside CCT 45 Critical Care - Objective Last 24 Hour Vital Signs Date Time Temp Pulse Resp B/P (MAP) Pulse Ox O2 Delivery O2 Flow Rate FiO2 07/23/18 12:00 98.2 75 22 141/77 (98) 100 07/23/18 11:54 79 07/23/18 11:01 75 19 100 Facial 100 07/23/18 09:07 136/83 07/23/18 09:01 98 21 98 Facial 100 07/23/18 08:00 78 07/23/18 08:00 98.4 82 23 136/83 (100) 90 07/23/18 04:54 66 20 95 Facial 50 07/23/18 04:00 97.4 75 20 133/71 (91) 97 07/23/18 04:00 Bi-pap 07/23/18 04:00 74 07/23/18 04:00 50 07/23/18 02:47 77 32 96 Facial 50 07/23/18 00:58 77 21 96 Facial 50 07/23/18 00:00 50 07/23/18 00:00 Bi-pap 07/23/18 00:00 98.0 68 20 127/72 (90) 100 07/23/18 00:00 74 07/22/18 22:50 73 25 99 Facial 50 07/22/18 20:51 75 16 95 Facial 50 07/22/18 20:00 98.0 84 20 146/60 (88) 100 07/22/18 20:00 Bi-pap 07/22/18 20:00 40 07/22/18 20:00 83 07/22/18 19:59 78 16 97 Facial 40 07/22/18 17:21 83 26 94 Facial 60 Status: obtunded, other - morbidly obese on BiPAP Condition: critical HEENT: atraumatic, normocephalic Lungs: rales - at bases Heart: HR/BP stable Abdomen: soft, non-tender, active bowel sounds Extremities: edema - 2+ lymphedema bLE Micro: Microbiology Date/Time Source Procedure Growth Status 07/21/18 23:55 Blood Blood Culture - Preliminary NO GROWTH AFTER 24 HOURS Resulted 07/21/18 23:41 Blood Blood Culture - Preliminary NO GROWTH AFTER 24 HOURS Resulted 07/21/18 23:13 Nasal Nares Influenza Types A,B Antigen (NELLA) - Final Complete Blood Sugars: BS controlled Critical Care - Subjective ROS Limited/Unobtainable: Yes ICU Day: 1 Intubation Day: N/A Interval Events: More obtunded this am, 7.21/122/38/48/70 (V), placed on 04/23, takes it off at times, now obtunded 7.21/127/214/50/99/15 No labs today, CX's NG LVEF 70-75% PASP 44 Condition: critical IV Access: peripheral EKG Rhythm: Sinus Rhythm FI02: 100 Vent Support Mode: BiLevel Sputum Amount: None I&O: Intake and Output 07/22/18 07/23/18 19:00 07:00 Intake Total 200 ml 900 ml Output Total 800 ml 1300 ml Balance -600 ml -400 ml Intake Oral 200 ml 900 ml Output Urine Total 800 ml 1300 ml Subjective: Obtunded, arouses to stimuli, unable to assess Labs: Laboratory Tests Test 07/23/18 07:55 07/23/18 10:00 07/23/18 16:50 Arterial Blood pH 7.211 (7.350-7.450) 7.213 (7.350-7.450) Arterial Blood Partial Pressure CO2 122.7 mmHg (35.0-45.0) *H 127.5 mmHg (35.0-45.0) *H Arterial Blood Partial Pressure O2 38.2 mmHg (75.0-100.0) 214.1 mmHg (75.0-100.0) H Arterial Blood HCO3 48.1 mmol/L (22.0-26.0) *H 50.2 mmol/L (22.0-26.0) *H Arterial Blood Oxygen Saturation 70.3 % (95-100) *L 99.3 % (95-100) Arterial Blood Base Excess 13.9 (-2-2) *H 15.8 (-2-2) *H Peter Test Positive Positive Troponin I 0.003 ng/mL (0.000-0.056) Triglycerides Level 62 MG/DL (30-150) Cholesterol Level 103 MG/DL (< 200) LDL Cholesterol 84 mg/dL (<100) HDL Cholesterol 23 MG/DL (40-60) L Cholesterol/HDL Ratio 4.5 (3.3-4.4) H Wiliam Bowers MD Jul 23, 2018 17:27
--- NOTE | 2018-07-23 17:30 | NUR ---
NURSE NOTES: ABG result given to Dr Bowers. He ordered transfer to ICU and change of BiPAP order at this time. ABG to be repeated in 2 hours.
[2018-07-23 18:27] LABS: BASOPHILS % (AUTO) 1.6 % (0.0-2.0); EOSINOPHILS % (AUTO) 0.2 % (0.0-3.0); HEMATOCRIT 48.4 % (42.0-52.0); HEMOGLOBIN 14.4 G/DL (14.2-18.0); LYMPHOCYTES % (AUTO) 8.9 % (20.0-45.0); MEAN CORPUSCULAR VOLUME 77 FL (80-99); MONOCYTES % (AUTO) 6.4 % (1.0-10.0); PLATELET COUNT 269 K/UL (150-450); RED BLOOD COUNT 6.25 M/UL (4.70-6.10); WHITE BLOOD COUNT 13.9 K/UL (4.8-10.8)
[2018-07-23 18:35] LABS: ALANINE AMINOTRANSFERASE 31 U/L (12-78); ALBUMIN 2.9 G/DL (3.4-5.0); ALBUMIN/GLOBULIN RATIO 0.7 (1.0-2.7); ALKALINE PHOSPHATASE 72 U/L (46-116); ASPARTATE AMINO TRANSFERASE 23 U/L (15-37); BILIRUBIN,TOTAL 0.5 MG/DL (0.2-1.0); BLOOD UREA NITROGEN 20 mg/dL (7-18); CALCIUM 8.6 MG/DL (8.5-10.1); CHLORIDE 101 MMOL/L (98-107); CREATININE 1.3 MG/DL (0.55-1.30); POTASSIUM 5.7 MMOL/L (3.5-5.1); SODIUM 145 MMOL/L (136-145)
--- NOTE | 2018-07-23 18:39 | NUR ---
HAND-OFF: Report given to JUAN Greenberg. Patient VS stable at this time. Patient awake but rambling at this time. Dr Schultz changed the BiPAP setting at this time and wants a follow up ABG at 1900. Endorsed to follow up.
--- NOTE | 2018-07-23 18:40 | NUR ---
NURSE NOTES: Report received from Jolene MARTINEZ. Pt awake and alert x4, sleepy but arousable. Pt connected to french translator, SR. Pt on bipap 20/5, saturating 100%. Pt on regular diet. Paige inserted upon arrival draining clear latesha urine to gravity bag. LFA 20G heplock noted and intact. Safety measures in place with bed locked and in lowest position, side rails x3 up, and call light within reach. Family at bedside to visit with patient. Will continue to monitor and continue plan of care.
[2018-07-23 19:05] LABS: CARBON DIOXIDE 45 MMOL/L (21-32)
--- NOTE | 2018-07-23 19:14 | NUR ---
HAND-OFF: Report given to Tamiko MARTINEZ.
--- NOTE | 2018-07-23 19:30 | NUR ---
NURSE NOTES: Received report from JUAN Morrison. patient in bed awake,alert able to verbalize needs to staff. ON BIPAP 06/12 Fi02 50% satting 98%. HOB elevated. repeat ABG ordered by Dr. Bowers will call MD once the ABG result received. instructed patient to use call light for assistance. Bed alarm on. Bed locked and in low positioned. SR on the monitor HR 78. No s/s of cardiac and acute distress noted. Family at bedside. Denies any pain or discomfort. Will continue plan of care.
--- NOTE | 2018-07-23 20:09 | NUR ---
NURSE NOTES: Called Dr. Miles regarding the ABG result ph 7.227, pc02 131.6, p02 70.4, bicarb 53.5. venous duplex ordered stat per Dr. Bowers. per Dr. Bowers increase bipap to 22/ recheck abg in 2 hours. charge nurse aware.
[2018-07-23] MEDS ORDERED: Tubing IV Secondary IV ONE (20:17)
--- NOTE | 2018-07-23 20:22 | NUR ---
NURSE NOTES: Dr. Angel came and made aware of patient potassium level of 5.7 MD with new order bolus of 250ccNS noted and carried out. patient made aware.
--- NOTE | 2018-07-23 20:23 | Cardiology Progress Note ---
Assessment/Plan Assessment/Plan 1. Morbid obesity. 2. Probable obesity hypoventilation syndrome. 3. Sleep apnea. 4. Lymphedema. 5. Right heart failure, probably secondary to above. 6. respiratory acidosis acute on chronic d/w dr miguel mar dc lasix will dc linopril likey will need intubation will bolus 250-500 cc o ns bolus prior to intubation echo reprotedly shwoed hyperdynamic systolic fucntion close icu observation Subjective Cardiovascular: Denies: chest pain, lightheadedness Respiratory: Reports: shortness of breath Gastrointestinal/Abdominal: Denies: abdominal pain Objective Last 24 Hour Vital Signs Date Time Temp Pulse Resp B/P (MAP) Pulse Ox O2 Delivery O2 Flow Rate FiO2 07/23/18 19:41 83 30 100 Facial 50 07/23/18 17:20 77 20 100 Facial 100 07/23/18 16:00 80 07/23/18 16:00 97.9 71 16 100/43 (62) 96 07/23/18 16:00 100 07/23/18 16:00 Bi-pap 07/23/18 12:00 98.2 75 22 141/77 (98) 100 07/23/18 12:00 100 07/23/18 12:00 Bi-pap 07/23/18 12:00 79 07/23/18 11:54 79 07/23/18 11:01 75 19 100 Facial 100 07/23/18 09:07 136/83 07/23/18 09:01 98 21 98 Facial 100 07/23/18 08:00 78 07/23/18 08:00 Bi-pap 07/23/18 08:00 100 07/23/18 08:00 98.4 82 23 136/83 (100) 90 07/23/18 04:54 66 20 95 Facial 50 07/23/18 04:00 97.4 75 20 133/71 (91) 97 07/23/18 04:00 Bi-pap 07/23/18 04:00 74 07/23/18 04:00 50 07/23/18 02:47 77 32 96 Facial 50 07/23/18 00:58 77 21 96 Facial 50 07/23/18 00:00 50 07/23/18 00:00 Bi-pap 07/23/18 00:00 98.0 68 20 127/72 (90) 100 07/23/18 00:00 74 07/22/18 22:50 73 25 99 Facial 50 07/22/18 20:51 75 16 95 Facial 50 General Appearance: no apparent distress, other - on bipap Neck: supple Cardiovascular: normal rate, regular rhythm Respiratory/Chest: lungs clear Abdomen: normal bowel sounds, non tender, soft Extremities: severe edema Intake and Output 07/22/18 07/23/18 18:59 06:59 Intake Total 200 ml 900 ml Output Total 800 ml 1300 ml Balance -600 ml -400 ml Intake Oral 200 ml 900 ml Output Urine Total 800 ml 1300 ml Laboratory Tests Test 07/23/18 07:55 07/23/18 10:00 07/23/18 16:50 07/23/18 17:25 Arterial Blood pH 7.211 (7.350-7.450) 7.213 (7.350-7.450) Arterial Blood Partial Pressure CO2 122.7 mmHg (35.0-45.0) *H 127.5 mmHg (35.0-45.0) *H Arterial Blood Partial Pressure O2 38.2 mmHg (75.0-100.0) 214.1 mmHg (75.0-100.0) H Arterial Blood HCO3 48.1 mmol/L (22.0-26.0) *H 50.2 mmol/L (22.0-26.0) *H Arterial Blood Oxygen Saturation 70.3 % (95-100) *L 99.3 % (95-100) Arterial Blood Base Excess 13.9 (-2-2) *H 15.8 (-2-2) *H Peter Test Positive Positive Troponin I 0.003 ng/mL (0.000-0.056) Triglycerides Level 62 MG/DL (30-150) Cholesterol Level 103 MG/DL (< 200) LDL Cholesterol 84 mg/dL (<100) HDL Cholesterol 23 MG/DL (40-60) L Cholesterol/HDL Ratio 4.5 (3.3-4.4) H White Blood Count 13.9 K/UL (4.8-10.8) H Red Blood Count 6.25 M/UL (4.70-6.10) H Hemoglobin 14.4 G/DL (14.2-18.0) Hematocrit 48.4 % (42.0-52.0) Mean Corpuscular Volume 77 FL (80-99) L Mean Corpuscular Hemoglobin 23.1 PG (27.0-31.0) L Mean Corpuscular Hemoglobin Concent 29.8 G/DL (32.0-36.0) L Red Cell Distribution Width 16.0 % (11.6-14.8) H Platelet Count 269 K/UL (150-450) Mean Platelet Volume 7.7 FL (6.5-10.1) Neutrophils (%) (Auto) 83.0 % (45.0-75.0) H Lymphocytes (%) (Auto) 8.9 % (20.0-45.0) L Monocytes (%) (Auto) 6.4 % (1.0-10.0) Eosinophils (%) (Auto) 0.2 % (0.0-3.0) Basophils (%) (Auto) 1.6 % (0.0-2.0) D-Dimer 2.86 mg/L FEU (0.00-0.49) H Sodium Level 145 MMOL/L (136-145) Potassium Level 5.7 MMOL/L (3.5-5.1) H Chloride Level 101 MMOL/L (98-107) Carbon Dioxide Level 45 MMOL/L (21-32) *H Blood Urea Nitrogen 20 mg/dL (7-18) H Creatinine 1.3 MG/DL (0.55-1.30) Estimat Glomerular Filtration Rate > 60 mL/min (>60) Glucose Level 122 MG/DL (74-106) H Calcium Level 8.6 MG/DL (8.5-10.1) Total Bilirubin 0.5 MG/DL (0.2-1.0) Aspartate Amino Transf (AST/SGOT) 23 U/L (15-37) Alanine Aminotransferase (ALT/SGPT) 31 U/L (12-78) Alkaline Phosphatase 72 U/L (46-116) Total Protein 7.2 G/DL (6.4-8.2) Albumin 2.9 G/DL (3.4-5.0) L Globulin 4.3 g/dL Albumin/Globulin Ratio 0.7 (1.0-2.7) L Test 07/23/18 19:11 Arterial Blood pH 7.227 (7.350-7.450) Arterial Blood Partial Pressure CO2 131.6 mmHg (35.0-45.0) *H Arterial Blood Partial Pressure O2 70.4 mmHg (75.0-100.0) L Arterial Blood HCO3 53.5 mmol/L (22.0-26.0) *H Arterial Blood Oxygen Saturation 94.0 % (95-100) L Arterial Blood Base Excess 19 (-2-2) *H Peter Test Positive Microbiology Date/Time Source Procedure Growth Status 07/21/18 23:55 Blood Blood Culture - Preliminary NO GROWTH AFTER 24 HOURS Resulted 07/21/18 23:41 Blood Blood Culture - Preliminary NO GROWTH AFTER 24 HOURS Resulted 07/21/18 23:13 Nasal Nares Influenza Types A,B Antigen (NELLA) - Final Complete Hima Angel MD Jul 23, 2018 20:23
[2018-07-23] MEDS: NS 250 ML IVPB ONE ×2 (20:30→22:00)
[2018-07-23] MEDS ORDERED: NS 250 ML IVPB ONE (20:30)
[2018-07-23] MEDS: Vancomycin 2gm/D5W 550ml IVPB SCH ×2 (20:45)
[2018-07-23] MEDS ORDERED: Isovue-300 100ml vial INJ PRN (21:15)
--- NOTE | 2018-07-23 21:20 | NUR ---
NURSE NOTES: Dr. Bowers aware that per [facility] tech they tried to do the venous duplex in am but unable to see anything due to pt obesity, pt exceeded the limit of ultrasound weight limits. pt weight 680lbs. ordered CT angio chest with contrast to rule out PE noted and carried out. pt in bed sleeping comfortably. denies any pain or discomfort. No s/s of cardiac and acute distress noted. Call light within easy reach. Will continue plan of care.
--- NOTE | 2018-07-23 21:55 | NUR ---
NURSE NOTES: called radiologist department spoke with December regarding the CT angio chest with contrast to rule out PE ordered but per December tech can't be done due to pts weight max 350lbs. per MD ask if they can do VQ but per December max is 330lbs for the pt unable to do VQ due to patient's weight. Charge nurse aware.
--- NOTE | 2018-07-23 22:38 | NUR ---
NURSE NOTES: Dr. Miles made aware of the ABG result ph 7.264, pc02 133.2, p02 72.2, bicarb 59. pt awake alert talking on bipap, Dr Bowers aware per MD increase the epap to 12 so 22/12 BIPAP settings and recheck ABG at 0600 noted and carried.
[2018-07-24] VITALS (22 sets, daily range): BP systolic 93–141; BP diastolic 46–104
--- NOTE | 2018-07-24 01:33 | NUR ---
NURSE NOTES: patient removed the BIPAP, patient teaching provided regarding the importance v/s risk and benefits of keeping the BIPAP on, pt understand. Will continue to monitor patient. water given drank 100cc tolerated well. Instructed patient to use call light for assistance.
--- NOTE | 2018-07-24 03:33 | NUR ---
NURSE NOTES: BIPAP 10/07 Fi02 50% satting 96%. patient sleeping comfortably. No moaning no facial grimaces. no s/s of acute distress noted. Call light within easy reach.
[2018-07-24] MEDS: Vancomycin 2gm/D5W 550ml IVPB SCH ×6 (04:00→20:55)
--- NOTE | 2018-07-24 04:00 | NUR ---
NURSE NOTES: Vancomycin 2gm IV antibiotic given. Patient in bed sleeping comfortably, easily arousable to verbal and tactile stimuli. No s/s of acute distress noted. BIPAP 10/07 fi02 50, satting 96%. Paige draining. Will continue to monitor patient.
--- NOTE | 2018-07-24 05:06 | NUR ---
NURSE NOTES: patient refused bed bath at this time, per patient he wants it later.charge nurse aware.
[2018-07-24 05:57] LABS: BASOPHILS % (AUTO) 1.2 % (0.0-2.0); EOSINOPHILS % (AUTO) 0.4 % (0.0-3.0); HEMATOCRIT 42.6 % (42.0-52.0); HEMOGLOBIN 12.9 G/DL (14.2-18.0); LYMPHOCYTES % (AUTO) 14.3 % (20.0-45.0); MEAN CORPUSCULAR VOLUME 76 FL (80-99); MONOCYTES % (AUTO) 8.2 % (1.0-10.0); NEUTROPHILS % (AUTO) 75.9 % (45.0-75.0); PLATELET COUNT 229 K/UL (150-450); RED BLOOD COUNT 5.58 M/UL (4.70-6.10); RED CELL DISTRIBUTION WIDTH 15.4 % (11.6-14.8); WHITE BLOOD COUNT 7.6 K/UL (4.8-10.8)
[2018-07-24 06:22] LABS: ANION GAP 0 mmol/L (5-15); BLOOD UREA NITROGEN 21 mg/dL (7-18); CALCIUM 8.6 MG/DL (8.5-10.1); CHLORIDE 102 MMOL/L (98-107); CREATININE 0.9 MG/DL (0.55-1.30); POTASSIUM 4.8 MMOL/L (3.5-5.1); SODIUM 144 MMOL/L (136-145)
[2018-07-24 06:26] LABS: CARBON DIOXIDE 42 MMOL/L (21-32)
--- NOTE | 2018-07-24 06:30 | NUR ---
RESPIRATORY NOTE: Received pt on current BiPAP settings. BiPAP mask removed to offset pressure and to adjust position of the mask. Skin barrier tape is in place. BiPAP alarms are on and audible. BiPAP is plugged into red outlet. Will monitor pt progress.
--- NOTE | 2018-07-24 06:37 | NUR ---
NURSE NOTES: Left message to Dr. Bowers regarding the ABG result ph 7.281, pc02 95.0, p02 88.0 bicarb 43.7. pt awake alert talking, on BIPAP 10/07 Fi02 50%, carbon dioxide lab result 42. Will follow up.
--- NOTE | 2018-07-24 06:57 | NUR ---
CASE MANAGEMENT:REVIEW 07/24/18 SI: AC/CHR RESPIRATORY FAILURE T 98.6 HR 77 RR 24 BP 93/47 SAT 99% BIPAP 20/5 @ 50% FIO2 PH-7.28 PCO2+95.0 HC03+43.7 IS: IV VANCOMYCIN Q8HRS HEPARIN SQ Q12 ASA PO QD PEPCID PO QD : ICU STATUS DCP: PATIENT IS FROM HOME PLAN: NPO
--- NOTE | 2018-07-24 07:10 | NUR ---
HAND-OFF: Report given to JUAN Knapp. Endorsed to Aria MARTINEZ regarding the ABG result. Patient refused am care, per patient later. Patient awake,alert able to verbalize needs to staff. Pt made aware of ABG lab result. Call light within easy reach.
--- NOTE | 2018-07-24 07:15 | NUR ---
NURSE NOTES: Report received from Idania MARTINEZ. Pt awake and alert x4, sleepy but arousable. Pt connected to monitoring and evaluation advisor, SR. Pt on bipap 10/07, saturating 100%. Pt on regular diet. Paige inserted upon arrival draining clear latesha urine to gravity bag. LFA 20G heplock noted and intact. Safety measures in place with bed locked and in lowest position, side rails x3 up, and call light within reach. Family at bedside to visit with patient. Will continue to monitor and continue plan of care.
[2018-07-24] MEDS: Aspirin Baby 81mg ORAL SCH (08:33)
[2018-07-24] MEDS: Heparin 5000 units/ml inj SUBQ SCH ×2 (08:40→20:29)
--- NOTE | 2018-07-24 09:57 | NUR ---
NURSE NOTES: Mask on bipap changed. Previous mask showed leak. Will continue to monitor.
--- NOTE | 2018-07-24 10:28 | Pulmonolgy Critical Care Note ---
Critical Care - Asmt/Plan Problems: (1) Lymphedema (2) Pulmonary hypertension (3) DANII (obstructive sleep apnea) (4) Acute on chronic respiratory failure with hypoxia and hypercapnia (5) Obesity hypoventilation syndrome (6) Obesity (7) CO2 retention (8) Leukocytosis (9) Cellulitis of lower leg (10) Diabetes mellitus (11) Hypertension Assessment/Plan: ASSESSMENT: The patient is a 48-year-old male with a history of morbid obesity , DANII, noncompliant with CPAP, congestive heart failure, hypertension, hyperlipidemia with a history of medication noncompliance, presenting with shortness of breath in the setting of decompensated heart failure. He has evidence of a chronic respiratory failure secondary to his untreated DANII/ obesity hypoventilation. PROBLEM LIST: 1. Chronic hypercapnic respiratory failure. 2. Hypoxemia secondary to above. 3. DANII, noncompliant with CPAP. 4. CHF, admitted with decompensated heart failure. 5. Morbid obesity. 6. Likely obesity, hypoventilation. 7. Hypertension, hyperlipidemia. 8. History of medication noncompliance. 9. Leukocytosis. 10. LE lymphedema 11. Likely superimposed cellulitis 12. Pulmonary HTN TREATMENT PLAN: Continue ICU level care BiPAP 08/12 No need for intubation, this is a chronic respiratory acidosis Monitor gas exchange Will take breaks off BiPAP as able alter today Monitor volumes and renal function, likely component of preload dependance Continue IV Vanco for LE cellulitis F/U final Duplex CT-A and VQ unable to be done F/U cardiology and renal recs DVT Px: hep SQ NPO FC D/W RN and RT throughout the night CCT 55 Critical Care - Objective Last 24 Hour Vital Signs Date Time Temp Pulse Resp B/P (MAP) Pulse Ox O2 Delivery O2 Flow Rate FiO2 07/24/18 09:29 64 20 98 Facial 50 07/24/18 08:00 50 07/24/18 08:00 Bi-pap 07/24/18 08:00 98.3 76 17 101/56 (71) 89 07/24/18 06:30 62 20 97 Facial 50 07/24/18 05:28 69 19 95 Facial 50 07/24/18 04:00 79 07/24/18 04:00 50 07/24/18 04:00 Bi-pap 07/24/18 04:00 98.6 77 24 93/47 (62) 99 07/24/18 03:06 69 17 95 Facial 50 07/24/18 03:00 77 22 112/62 (79) 98 07/24/18 02:00 80 18 111/59 (76) 96 07/24/18 01:24 74 18 94 Facial 50 07/24/18 01:00 77 23 114/52 (72) 94 07/24/18 00:08 81 18 106/58 (74) 100 07/24/18 00:00 78 07/24/18 00:00 Bi-pap 07/24/18 00:00 50 07/24/18 00:00 98.1 80 17 100 07/23/18 23:00 72 22 115/62 (79) 100 07/23/18 22:44 77 17 100 Facial 50 07/23/18 22:39 76 23 117/72 (87) 100 07/23/18 22:03 77 22 91/52 (65) 98 07/23/18 22:00 78 21 83/45 (58) 98 07/23/18 21:49 73 18 101/49 (66) 99 07/23/18 21:00 82 25 98 07/23/18 20:52 81 23 100 Facial 50 07/23/18 20:15 50 07/23/18 20:00 98.0 82 20 100 07/23/18 20:00 50 07/23/18 20:00 76 07/23/18 20:00 Bi-pap 07/23/18 19:41 83 30 100 Facial 50 07/23/18 19:00 81 24 100 07/23/18 17:20 77 20 100 Facial 100 07/23/18 16:00 80 07/23/18 16:00 97.9 71 16 100/43 (62) 96 07/23/18 16:00 100 07/23/18 16:00 Bi-pap 07/23/18 12:00 98.2 75 22 141/77 (98) 100 07/23/18 12:00 100 07/23/18 12:00 Bi-pap 07/23/18 12:00 79 07/23/18 11:54 79 07/23/18 11:01 75 19 100 Facial 100 Status: awake, other - morbidly obese on BiPAP Condition: critical HEENT: atraumatic, normocephalic, other - BiPAP Lungs: clear - but distant Heart: HR/BP stable Abdomen: soft, non-tender, active bowel sounds Extremities: other - BLE chronic lymphedema 2+ Micro: Microbiology Date/Time Source Procedure Growth Status 07/21/18 23:55 Blood Blood Culture - Preliminary NO GROWTH AFTER 24 HOURS Resulted 07/21/18 23:41 Blood Blood Culture - Preliminary NO GROWTH AFTER 24 HOURS Resulted 07/21/18 23:13 Nasal Nares Influenza Types A,B Antigen (NELLA) - Final Complete Blood Sugars: BS controlled Critical Care - Subjective ROS Limited/Unobtainable: Yes ICU Day: 2 Intubation Day: On BiPAP 10/07 Interval Events: 7.28/95/88/43/96, BiPAP adjusted several times ON Awake and alert, no distress No F/C/CP/SOB VQ and CT-A unable to be done / weight, per report limited duplex negative Dr. Angel saw pt O/N, stopped lasix and gave a 250 cc bolus -2.6L Condition: critical IV Access: peripheral EKG Rhythm: Sinus Rhythm FI02: 50 Vent Support Mode: BiLevel Sputum Amount: None Fluids: SLIV Drips: None I&O: Intake and Output 07/23/18 07/24/18 19:00 07:00 Intake Total 960 ml 1600 ml Output Total 2150 ml 2100 ml Balance -1190 ml -500 ml Intake Oral 960 ml IV Total 1600 ml Output Urine Total 2150 ml 2100 ml # Voids 1 Subjective: Awake and alert now, no distress Labs: Laboratory Tests Test 07/23/18 16:50 07/23/18 17:25 07/23/18 19:11 07/23/18 22:15 Arterial Blood pH 7.213 (7.350-7.450) 7.227 (7.350-7.450) 7.264 (7.350-7.450) Arterial Blood Partial Pressure CO2 127.5 mmHg (35.0-45.0) *H 131.6 mmHg (35.0-45.0) *H 133.2 mmHg (35.0-45.0) *H Arterial Blood Partial Pressure O2 214.1 mmHg (75.0-100.0) H 70.4 mmHg (75.0-100.0) L 72.2 mmHg (75.0-100.0) L Arterial Blood HCO3 50.2 mmol/L (22.0-26.0) *H 53.5 mmol/L (22.0-26.0) *H 59.0 mmol/L (22.0-26.0) *H Arterial Blood Oxygen Saturation 99.3 % (95-100) 94.0 % (95-100) L 94.0 % (95-100) L Arterial Blood Base Excess 15.8 (-2-2) *H 19 (-2-2) *H 24.5 (-2-2) *H Peter Test Positive Positive Positive White Blood Count 13.9 K/UL (4.8-10.8) H Red Blood Count 6.25 M/UL (4.70-6.10) H Hemoglobin 14.4 G/DL (14.2-18.0) Hematocrit 48.4 % (42.0-52.0) Mean Corpuscular Volume 77 FL (80-99) L Mean Corpuscular Hemoglobin 23.1 PG (27.0-31.0) L Mean Corpuscular Hemoglobin Concent 29.8 G/DL (32.0-36.0) L Red Cell Distribution Width 16.0 % (11.6-14.8) H Platelet Count 269 K/UL (150-450) Mean Platelet Volume 7.7 FL (6.5-10.1) Neutrophils (%) (Auto) 83.0 % (45.0-75.0) H Lymphocytes (%) (Auto) 8.9 % (20.0-45.0) L Monocytes (%) (Auto) 6.4 % (1.0-10.0) Eosinophils (%) (Auto) 0.2 % (0.0-3.0) Basophils (%) (Auto) 1.6 % (0.0-2.0) D-Dimer 2.86 mg/L FEU (0.00-0.49) H Sodium Level 145 MMOL/L (136-145) Potassium Level 5.7 MMOL/L (3.5-5.1) H Chloride Level 101 MMOL/L (98-107) Carbon Dioxide Level 45 MMOL/L (21-32) *H Blood Urea Nitrogen 20 mg/dL (7-18) H Creatinine 1.3 MG/DL (0.55-1.30) Estimat Glomerular Filtration Rate > 60 mL/min (>60) Glucose Level 122 MG/DL (74-106) H Calcium Level 8.6 MG/DL (8.5-10.1) Total Bilirubin 0.5 MG/DL (0.2-1.0) Aspartate Amino Transf (AST/SGOT) 23 U/L (15-37) Alanine Aminotransferase (ALT/SGPT) 31 U/L (12-78) Alkaline Phosphatase 72 U/L (46-116) Total Protein 7.2 G/DL (6.4-8.2) Albumin 2.9 G/DL (3.4-5.0) L Globulin 4.3 g/dL Albumin/Globulin Ratio 0.7 (1.0-2.7) L Test 07/24/18 05:35 07/24/18 06:20 White Blood Count 7.6 K/UL (4.8-10.8) Red Blood Count 5.58 M/UL (4.70-6.10) Hemoglobin 12.9 G/DL (14.2-18.0) L Hematocrit 42.6 % (42.0-52.0) Mean Corpuscular Volume 76 FL (80-99) L Mean Corpuscular Hemoglobin 23.0 PG (27.0-31.0) L Mean Corpuscular Hemoglobin Concent 30.2 G/DL (32.0-36.0) L Red Cell Distribution Width 15.4 % (11.6-14.8) H Platelet Count 229 K/UL (150-450) Mean Platelet Volume 7.9 FL (6.5-10.1) Neutrophils (%) (Auto) 75.9 % (45.0-75.0) H Lymphocytes (%) (Auto) 14.3 % (20.0-45.0) L Monocytes (%) (Auto) 8.2 % (1.0-10.0) Eosinophils (%) (Auto) 0.4 % (0.0-3.0) Basophils (%) (Auto) 1.2 % (0.0-2.0) Sodium Level 144 MMOL/L (136-145) Potassium Level 4.8 MMOL/L (3.5-5.1) Chloride Level 102 MMOL/L (98-107) Carbon Dioxide Level 42 MMOL/L (21-32) *H Anion Gap 0 mmol/L (5-15) L Blood Urea Nitrogen 21 mg/dL (7-18) H Creatinine 0.9 MG/DL (0.55-1.30) Estimat Glomerular Filtration Rate > 60 mL/min (>60) Glucose Level 117 MG/DL (74-106) H Calcium Level 8.6 MG/DL (8.5-10.1) Arterial Blood pH 7.281 (7.350-7.450) Arterial Blood Partial Pressure CO2 95.0 mmHg (35.0-45.0) *H Arterial Blood Partial Pressure O2 88.0 mmHg (75.0-100.0) Arterial Blood HCO3 43.7 mmol/L (22.0-26.0) *H Arterial Blood Oxygen Saturation 96.0 % (95-100) Arterial Blood Base Excess 12.6 (-2-2) *H Peter Test Positive Wiliam Bowers MD Jul 24, 2018 10:28
--- NOTE | 2018-07-24 10:53 | NUR ---
NURSE NOTES: Dr Bowers here to see pt. said its ok to take small breaks from bipap later when pt is more awake. Will continue to monitor.
--- NOTE | 2018-07-24 12:37 | NUR ---
NURSE NOTES: Family at bedside visiting with patient. No acute distress. Will continue to monitor.
--- NOTE | 2018-07-24 14:07 | NUR ---
NURSE NOTES: Dr Bland here to see pt. discussed with pt about the plan after discharge. Will continue to monitor.
--- NOTE | 2018-07-24 14:45 | General Progress Note ---
Assessment/Plan Problem List: (1) CHF exacerbation ICD Codes: I50.9 - Heart failure, unspecified SNOMED: 19365714, 108468006, 931832626 Qualifiers: Qualified Codes: I50.43 - Acute on chronic combined systolic (congestive) and diastolic (congestive) heart failure (2) Morbid obesity ICD Codes: E66.01 - Morbid (severe) obesity due to excess calories SNOMED: 522278957 (3) Hypertension ICD Codes: I10 - Essential (primary) hypertension SNOMED: 33551823 (4) CO2 retention ICD Codes: E87.2 - Acidosis SNOMED: 18743875, 715808884 (5) Diabetes mellitus ICD Codes: E11.9 - Diabetes mellitus SNOMED: 07290114 (6) Obesity hypoventilation syndrome ICD Codes: E66.2 - Morbid (severe) obesity with alveolar hypoventilation SNOMED: 585461469 Assessment/Plan cont BIPAP diuresis abxs Discussed with RN follow labs discussed with pt for need to lose weight Subjective Allergies: Coded Allergies: No Known Allergies (Unverified , 02/15/15) Subjective on BIPAP Objective Last 24 Hour Vital Signs Date Time Temp Pulse Resp B/P (MAP) Pulse Ox O2 Delivery O2 Flow Rate FiO2 07/24/18 14:00 73 13 95/46 (62) 100 07/24/18 13:08 65 24 99 Facial 50 07/24/18 13:00 72 19 135/104 (114) 92 07/24/18 12:00 50 07/24/18 12:00 Bi-pap 07/24/18 12:00 98.0 77 18 135/72 (93) 98 07/24/18 11:00 81 11 131/71 (91) 100 07/24/18 10:49 61 22 98 Facial 50 07/24/18 10:00 82 22 106/52 (70) 96 07/24/18 09:29 64 20 98 Facial 50 07/24/18 09:00 79 27 117/59 (78) 88 07/24/18 08:00 50 07/24/18 08:00 Bi-pap 07/24/18 08:00 98.3 76 17 101/56 (71) 89 07/24/18 06:30 62 20 97 Facial 50 07/24/18 05:28 69 19 95 Facial 50 1/5/19 04:00 79 07/24/18 04:00 50 07/24/18 04:00 Bi-pap 07/24/18 04:00 98.6 77 24 93/47 (62) 99 07/24/18 03:06 69 17 95 Facial 50 07/24/18 03:00 77 22 112/62 (79) 98 07/24/18 02:00 80 18 111/59 (76) 96 07/24/18 01:24 74 18 94 Facial 50 07/24/18 01:00 77 23 114/52 (72) 94 07/24/18 00:08 81 18 106/58 (74) 100 07/24/18 00:00 78 07/24/18 00:00 Bi-pap 07/24/18 00:00 50 07/24/18 00:00 98.1 80 17 100 07/23/18 23:00 72 22 115/62 (79) 100 07/23/18 22:44 77 17 100 Facial 50 07/23/18 22:39 76 23 117/72 (87) 100 07/23/18 22:03 77 22 91/52 (65) 98 07/23/18 22:00 78 21 83/45 (58) 98 07/23/18 21:49 73 18 101/49 (66) 99 07/23/18 21:00 82 25 98 07/23/18 20:52 81 23 100 Facial 50 07/23/18 20:15 50 07/23/18 20:00 98.0 82 20 100 07/23/18 20:00 50 07/23/18 20:00 76 07/23/18 20:00 Bi-pap 07/23/18 19:41 83 30 100 Facial 50 07/23/18 19:00 81 24 100 07/23/18 17:20 77 20 100 Facial 100 07/23/18 16:00 80 07/23/18 16:00 97.9 71 16 100/43 (62) 96 07/23/18 16:00 100 07/23/18 16:00 Bi-pap Intake and Output 07/23/18 07/24/18 19:00 07:00 Intake Total 960 ml 1600 ml Output Total 2150 ml 2100 ml Balance -1190 ml -500 ml Intake Oral 960 ml IV Total 1600 ml Output Urine Total 2150 ml 2100 ml # Voids 1 Laboratory Tests 07/23/18 16:50: Arterial Blood pH 7.213*L, Arterial Blood Partial Pressure CO2 127.5*H, Arterial Blood Partial Pressure O2 214.1H, Arterial Blood HCO3 50.2*H, Arterial Blood Oxygen Saturation 99.3, Arterial Blood Base Excess 15.8*H, Peter Test Positive 07/23/18 17:25: White Blood Count 13.9H, Red Blood Count 6.25H, Hemoglobin 14.4, Hematocrit 48.4 , Mean Corpuscular Volume 77L, Mean Corpuscular Hemoglobin 23.1L, Mean Corpuscular Hemoglobin Concent 29.8L, Red Cell Distribution Width 16.0H, Platelet Count 269, Mean Platelet Volume 7.7, Neutrophils (%) (Auto) 83.0H, Lymphocytes (%) (Auto) 8.9L, Monocytes (%) (Auto) 6.4, Eosinophils (%) (Auto) 0.2, Basophils (%) (Auto) 1.6, D-Dimer 2.86H, Sodium Level 145, Potassium Level 5.7H, Chloride Level 101, Carbon Dioxide Level 45*H, Blood Urea Nitrogen 20H, Creatinine 1.3, Estimat Glomerular Filtration Rate > 60, Glucose Level 122H, Calcium Level 8.6, Total Bilirubin 0.5, Aspartate Amino Transf (AST/SGOT) 23, Alanine Aminotransferase (ALT/SGPT) 31, Alkaline Phosphatase 72, Total Protein 7.2, Albumin 2.9L, Globulin 4.3, Albumin/Globulin Ratio 0.7L 07/23/18 19:11: Arterial Blood pH 7.227*L, Arterial Blood Partial Pressure CO2 131.6*H, Arterial Blood Partial Pressure O2 70.4L, Arterial Blood HCO3 53.5*H, Arterial Blood Oxygen Saturation 94.0L, Arterial Blood Base Excess 19*H, Peter Test Positive 07/23/18 22:15: Arterial Blood pH 7.264L, Arterial Blood Partial Pressure CO2 133.2*H, Arterial Blood Partial Pressure O2 72.2L, Arterial Blood HCO3 59.0*H, Arterial Blood Oxygen Saturation 94.0L, Arterial Blood Base Excess 24.5*H, Peter Test Positive 07/24/18 05:35: White Blood Count 7.6, Red Blood Count 5.58, Hemoglobin 12.9L, Hematocrit 42.6, Mean Corpuscular Volume 76L, Mean Corpuscular Hemoglobin 23.0L, Mean Corpuscular Hemoglobin Concent 30.2L, Red Cell Distribution Width 15.4H, Platelet Count 229, Mean Platelet Volume 7.9, Neutrophils (%) (Auto) 75.9H, Lymphocytes (%) (Auto) 14.3L, Monocytes (%) (Auto) 8.2, Eosinophils (%) (Auto) 0.4, Basophils (%) (Auto) 1.2, Sodium Level 144, Potassium Level 4.8, Chloride Level 102, Carbon Dioxide Level 42*H, Anion Gap 0L, Blood Urea Nitrogen 21H, Creatinine 0.9, Estimat Glomerular Filtration Rate > 60, Glucose Level 117H, Calcium Level 8.6 07/24/18 06:20: Arterial Blood pH 7.281L, Arterial Blood Partial Pressure CO2 95.0*H, Arterial Blood Partial Pressure O2 88.0, Arterial Blood HCO3 43.7*H, Arterial Blood Oxygen Saturation 96.0, Arterial Blood Base Excess 12.6*H, Peter Test Positive Height (Feet): 6 Height (Inches): 2.00 Weight (Pounds): 680 Cardiovascular: normal rate Respiratory/Chest: rhonchi - bilaterally Edema: 2+ Generalized Mayco Bland MD Jul 24, 2018 14:45
--- NOTE | 2018-07-24 15:01 | NUR ---
NURSE NOTES: Family here to visit with pt. No acute distress. Will continue to monitor.
--- NOTE | 2018-07-24 15:48 | Cardiology Report ---
APPROVED REPORT EXAM: Two-dimensional and M-mode echocardiogram with Doppler and color Doppler. INDICATION Congestive Heart Failure M-Mode DIMENSIONS IVSd1.6 (0.7-1.1cm)Left Atrium (MM)3.6 (1.6-4.0cm) LVDd4.5 (3.5-5.6cm)Aortic Root4.0 (2.0-3.7cm) PWd1.4 (0.7-1.1cm)Aortic Cusp Exc.2.6 (1.5-2.0cm) LVDs2.5 (2.5-4.0cm) PWs2.0 cm Normal left ventricular chamber size, hyperdynamic systolic function and wall motion to extent visualized. Left ventricular ejection fraction estimated to be 70-75 %. Study quality precludes accurate assessment of regional wall motion. Moderate left ventricular hypertrophy. No evidence of pericardial effusion. Mild bi-atrial enlargement. Right ventricular chamber size is within normal limits. Mild focal aortic valve sclerosis with adequate cusp excursion. Mildly thickened mitral valve leaflets with normal excursion. Mitral annulus and aortic root calcification. Pulmonic valve not well visualized. Normal tricuspid valve structure. IVC dilated at 2.8 cm without physiologic collapse suggestive of increased RA pressure. A color flow and spectral Doppler study was performed and revealed: Trace mitral regurgitation. Mitral inflow indicates normal left ventricular diastolic function. Trace tricuspid regurgitation. Tricuspid systolic velocities suggests peak right ventricular systolic pressure of 44 mmHg, consistent with mild pulmonary hypertension.
--- NOTE | 2018-07-24 15:52 | Diagnostic Imaging Report ---
INDICATION: Shortness of breath COMPARISON: Chest x-ray dated 07/21/18 FINDINGS: Single frontal view demonstrates prominent cardiac size. Patchy opacity in bilateral lungs, grossly unchanged. No pleural effusions. The visualized osseous structures are within normal limits. IMPRESSION: Prominent cardiac size. Patchy opacity in bilateral lungs, grossly unchanged.
--- NOTE | 2018-07-24 18:58 | NUR ---
RESPIRATORY NOTE: Received pt on bipap setting of 22/12 FIO2 50%. Carlito ABG and told Idania MARTINEZ the result.
--- NOTE | 2018-07-24 19:21 | NUR ---
HAND-OFF: Report given to Idania MARTINEZ.
--- NOTE | 2018-07-24 19:30 | NUR ---
NURSE NOTES: Received report from JUAN Li. patient in bed awake,alert able to make needs known to staff. ON BIPAP 10/07 Fi02 50% satting 98%. No s/s of acute distress noted. no complain of pain or discomfort. Instructed patient to use call light for assistance. Will continue plan of care.
--- NOTE | 2018-07-24 19:45 | NUR ---
NURSE NOTES: Dr. Bowers made aware of ABG result ph 7.354, pc02 85.1, p02 107.9 bicarb 46.4. pt awake alert talking, on BIPAP 10/07 Fi02 50%. No new order at this time. patient and charge nurse aware.
--- NOTE | 2018-07-24 20:01 | NUR ---
NURSE NOTES: Family at bedside.
--- NOTE | 2018-07-24 20:54 | NUR ---
NURSE NOTES: vanco through 12.8 per pharmacist continue the same dose.
--- NOTE | 2018-07-24 21:48 | Cardiology Progress Note ---
Assessment/Plan Assessment/Plan obstructive sleep apnea, obesity hypoventilation syndrome, possible CHF. Will follow his echo Subjective Subjective The patient is on Bipap, sleeping, opens his eyes, but not interacting Objective Last 24 Hour Vital Signs Date Time Temp Pulse Resp B/P (MAP) Pulse Ox O2 Delivery O2 Flow Rate FiO2 07/24/18 21:22 61 24 100 Facial 50 07/24/18 18:45 69 25 99 Facial 50 07/24/18 18:00 69 17 137/63 (87) 100 07/24/18 17:00 68 23 134/77 (96) 98 07/24/18 16:46 61 25 99 Facial 50 07/24/18 16:00 Bi-pap 07/24/18 16:00 98.2 07/24/18 16:00 74 07/24/18 16:00 98.2 74 25 132/70 (90) 96 07/24/18 16:00 50 07/24/18 15:28 61 20 99 Facial 50 07/24/18 15:00 67 18 125/74 (91) 99 07/24/18 14:00 73 13 95/46 (62) 100 07/24/18 13:08 65 24 99 Facial 50 07/24/18 13:00 72 19 135/104 (114) 92 07/24/18 12:00 50 07/24/18 12:00 70 07/24/18 12:00 Bi-pap 07/24/18 12:00 98.0 77 18 135/72 (93) 98 07/24/18 11:00 81 11 131/71 (91) 100 07/24/18 10:49 61 22 98 Facial 50 07/24/18 10:00 82 22 106/52 (70) 96 07/24/18 09:29 64 20 98 Facial 50 07/24/18 09:00 79 27 117/59 (78) 88 07/24/18 08:00 50 07/24/18 08:00 Bi-pap 07/24/18 08:00 77 07/24/18 08:00 98.3 76 17 101/56 (71) 89 07/24/18 06:30 62 20 97 Facial 50 07/24/18 05:28 69 19 95 Facial 50 07/24/18 04:00 79 07/24/18 04:00 50 07/24/18 04:00 Bi-pap 07/24/18 04:00 98.6 77 24 93/47 (62) 99 07/24/18 03:06 69 17 95 Facial 50 07/24/18 03:00 77 22 112/62 (79) 98 07/24/18 02:00 80 18 111/59 (76) 96 07/24/18 01:24 74 18 94 Facial 50 07/24/18 01:00 77 23 114/52 (72) 94 07/24/18 00:08 81 18 106/58 (74) 100 07/24/18 00:00 78 07/24/18 00:00 Bi-pap 07/24/18 00:00 50 07/24/18 00:00 98.1 80 17 100 07/23/18 23:00 72 22 115/62 (79) 100 07/23/18 22:44 77 17 100 Facial 50 07/23/18 22:39 76 23 117/72 (87) 100 07/23/18 22:03 77 22 91/52 (65) 98 07/23/18 22:00 78 21 83/45 (58) 98 07/23/18 21:49 73 18 101/49 (66) 99 General Appearance: obese, other - morbid EENT: PERRL/EOMI Neck: other - inable to assess JVp due to his obesity Rhythm: NSR Cardiovascular: normal rate Respiratory/Chest: decreased breath sounds, rhonchi - bilaterally Abdomen: distended Extremities: non-pitting Intake and Output 07/23/18 07/24/18 18:59 06:59 Intake Total 960 ml 1600 ml Output Total 1950 ml 2300 ml Balance -990 ml -700 ml Intake Oral 960 ml IV Total 1600 ml Output Urine Total 1950 ml 2300 ml # Voids 1 Laboratory Tests Test 07/23/18 22:15 07/24/18 05:35 07/24/18 06:20 07/24/18 18:00 Arterial Blood pH 7.264 (7.350-7.450) 7.281 (7.350-7.450) 7.354 (7.350-7.450) Arterial Blood Partial Pressure CO2 133.2 mmHg (35.0-45.0) *H 95.0 mmHg (35.0-45.0) *H 85.1 mmHg (35.0-45.0) *H Arterial Blood Partial Pressure O2 72.2 mmHg (75.0-100.0) L 88.0 mmHg (75.0-100.0) 107.9 mmHg (75.0-100.0) H Arterial Blood HCO3 59.0 mmol/L (22.0-26.0) *H 43.7 mmol/L (22.0-26.0) *H 46.4 mmol/L (22.0-26.0) *H Arterial Blood Oxygen Saturation 94.0 % (95-100) L 96.0 % (95-100) 98.1 % (95-100) Arterial Blood Base Excess 24.5 (-2-2) *H 12.6 (-2-2) *H 16.3 (-2-2) *H Peter Test Positive Positive Positive White Blood Count 7.6 K/UL (4.8-10.8) Red Blood Count 5.58 M/UL (4.70-6.10) Hemoglobin 12.9 G/DL (14.2-18.0) L Hematocrit 42.6 % (42.0-52.0) Mean Corpuscular Volume 76 FL (80-99) L Mean Corpuscular Hemoglobin 23.0 PG (27.0-31.0) L Mean Corpuscular Hemoglobin Concent 30.2 G/DL (32.0-36.0) L Red Cell Distribution Width 15.4 % (11.6-14.8) H Platelet Count 229 K/UL (150-450) Mean Platelet Volume 7.9 FL (6.5-10.1) Neutrophils (%) (Auto) 75.9 % (45.0-75.0) H Lymphocytes (%) (Auto) 14.3 % (20.0-45.0) L Monocytes (%) (Auto) 8.2 % (1.0-10.0) Eosinophils (%) (Auto) 0.4 % (0.0-3.0) Basophils (%) (Auto) 1.2 % (0.0-2.0) Sodium Level 144 MMOL/L (136-145) Potassium Level 4.8 MMOL/L (3.5-5.1) Chloride Level 102 MMOL/L (98-107) Carbon Dioxide Level 42 MMOL/L (21-32) *H Anion Gap 0 mmol/L (5-15) L Blood Urea Nitrogen 21 mg/dL (7-18) H Creatinine 0.9 MG/DL (0.55-1.30) Estimat Glomerular Filtration Rate > 60 mL/min (>60) Glucose Level 117 MG/DL (74-106) H Calcium Level 8.6 MG/DL (8.5-10.1) Test 07/24/18 19:20 Vancomycin Level Trough 12.8 ug/mL (5.0-12.0) H Microbiology Date/Time Source Procedure Growth Status 07/21/18 23:55 Blood Blood Culture - Preliminary NO GROWTH AFTER 48 HOURS Resulted 07/21/18 23:41 Blood Blood Culture - Preliminary NO GROWTH AFTER 48 HOURS Resulted 07/21/18 23:13 Nasal Nares Influenza Types A,B Antigen (NELLA) - Final Complete Tania Saunders MD Jul 24, 2018 21:48
[2018-07-24] MEDS ORDERED: NS 275ml ONE (22:49)
[2018-07-24] MEDS ORDERED: D5NS 1000ml IV ONE (22:49)
[2018-07-24] MEDS ORDERED: Tubing IV Secondary IV ONE (22:49)
--- NOTE | 2018-07-24 22:54 | NUR ---
NURSE NOTES: Patient in bed sleeping comfortably, no s/s of acute distress noted. ON BIPAP 10/07 Fi02 50% satting 98-100%. HOB elevated. Instructed patient to use call light for assistance. Bed in low position.bed alarm on. Left F/A IV line intact running Vancomycin 2gm. Will continue plan of care.
[2018-07-25] VITALS (24 sets, daily range): BP systolic 99–160; BP diastolic 55–118
--- NOTE | 2018-07-25 00:30 | NUR ---
NURSE NOTES: Patient in bed sleeping comfortably. No s/s of cardiac and acute distress noted. On BIPAP 10/07 Ia2590% satting 100%. Paige draining well. No fever. Frequent visual checks continued. Will continue plan of care.
--- NOTE | 2018-07-25 02:30 | NUR ---
NURSE NOTES: family at bedside. patient awake,alert no s/s of acute distress noted. Call light within easy reach.
[2018-07-25] MEDS: Vancomycin 2gm/D5W 550ml IVPB SCH ×6 (04:00→20:25)
--- NOTE | 2018-07-25 04:30 | NUR ---
NURSE NOTES: Bed bath given tolerated well.
--- NOTE | 2018-07-25 06:00 | NUR ---
NURSE NOTES: Repositioned in bed. No s/s of acute distress noted
--- NOTE | 2018-07-25 07:10 | NUR ---
NURSE NOTES: Left message to Dr. Sandhu regarding the magnesium level 1.7 endorsed to JUAN Colindres. Addendum: 07/25/18 at 0711 by CECIL JAVED RN RN wrong patient
--- NOTE | 2018-07-25 07:30 | NUR ---
HAND-OFF: Report given to Miladys Willett RN.Patient in bed awake,alert able to make needs known to staff. Denies any pain or discomfort. ON BIPAP 10/07 Fi02 50% satting 97%. Call light within easy reach.Continue on Vancomycin IV ATB for LE cellulitis no ASE noted.
--- NOTE | 2018-07-25 07:44 | NUR ---
RESPIRATORY NOTE: Received pt. on BIPAP. BIPAP settings are: 22/12, PS of 10, Rate of 16, FI02 50%. No respiratory distress noted, Spo2 @ 100%. Vent plugged on red outlet. Will continue to monitor pt.
--- NOTE | 2018-07-25 09:00 | NUR ---
NURSE NOTES: Patient is alert and oriented x 4 has been off the bipap since 0900 . WIll be on nasal cannula 3L during the day.
[2018-07-25] MEDS: Aspirin Baby 81mg ORAL SCH (10:06)
[2018-07-25] MEDS: Heparin 5000 units/ml inj SUBQ SCH ×2 (10:09→20:42)
--- NOTE | 2018-07-25 11:41 | Pulmonolgy Critical Care Note ---
Critical Care - Asmt/Plan Problems: (1) Lymphedema (2) Pulmonary hypertension (3) DANII (obstructive sleep apnea) (4) Acute on chronic respiratory failure with hypoxia and hypercapnia (5) Obesity hypoventilation syndrome (6) Obesity (7) CO2 retention (8) Leukocytosis (9) Cellulitis of lower leg (10) Diabetes mellitus (11) Hypertension Assessment/Plan: ASSESSMENT: The patient is a 48-year-old male with a history of morbid obesity , DANII, noncompliant with CPAP, congestive heart failure, hypertension, hyperlipidemia with a history of medication noncompliance, presenting with shortness of breath in the setting of decompensated heart failure. He has evidence of a chronic respiratory failure secondary to his untreated DANII/ obesity hypoventilation. PROBLEM LIST: 1. Chronic hypercapnic respiratory failure. 2. Hypoxemia secondary to above. 3. DANII, noncompliant with CPAP. 4. CHF, admitted with decompensated heart failure. 5. Morbid obesity. 6. Likely obesity, hypoventilation. 7. Hypertension, hyperlipidemia. 8. History of medication noncompliance. 9. Leukocytosis. 10. LE lymphedema 11. Likely superimposed cellulitis 12. Pulmonary HTN TREATMENT PLAN: Continue ICU level care ---> if stable in am will transfer to ANGE BiPAP 22/12 qHS and PRN ---> will attempt breaks off BiPAP as able today Will need to set up outpatient NIPPV No need for intubation, this is a chronic respiratory acidosis Monitor gas exchange Monitor volumes and renal function, likely component of preload dependance Continue IV Vanco for LE cellulitis F/U final Duplex CT-A and VQ unable to be done F/U cardiology and renal recs DVT Px: hep SQ Aspiration precautions FC D/W RN and RT CCT 55 Critical Care - Objective Last 24 Hour Vital Signs Date Time Temp Pulse Resp B/P (MAP) Pulse Ox O2 Delivery O2 Flow Rate FiO2 07/25/18 07:42 68 2 98 Facial 50 07/25/18 07:00 68 113/81 (92) 99 07/25/18 06:00 69 29 137/84 (101) 100 07/25/18 05:00 66 24 142/86 (104) 100 07/25/18 04:58 65 21 100 Facial 50 07/25/18 04:00 50 07/25/18 04:00 Bi-pap 07/25/18 04:00 98.4 65 19 142/87 (105) 99 07/25/18 03:51 64 07/25/18 03:00 69 21 129/75 (93) 100 07/25/18 02:43 66 18 100 Facial 50 07/25/18 02:00 65 19 138/77 (97) 99 07/25/18 01:00 68 21 123/78 (93) 98 07/25/18 00:40 63 17 100 Facial 50 07/25/18 00:00 Bi-pap 07/25/18 00:00 98.6 64 26 133/86 (102) 96 07/24/18 23:53 64 07/24/18 23:08 64 18 99 Facial 50 07/24/18 23:00 70 23 127/72 (90) 99 07/24/18 22:00 62 23 125/75 (92) 99 07/24/18 21:22 61 24 100 Facial 50 07/24/18 21:00 71 18 124/73 (90) 99 07/24/18 20:55 67 12 120/73 (89) 100 07/24/18 20:00 98.4 69 15 122/100 (107) 100 07/24/18 20:00 Bi-pap 07/24/18 20:00 50 07/24/18 20:00 65 07/24/18 19:28 71 18 141/77 (98) 100 07/24/18 19:00 65 18 100 07/24/18 18:45 69 25 99 Facial 50 07/24/18 18:00 69 17 137/63 (87) 100 07/24/18 17:00 68 23 134/77 (96) 98 07/24/18 16:46 61 25 99 Facial 50 07/24/18 16:00 Bi-pap 07/24/18 16:00 98.2 07/24/18 16:00 74 07/24/18 16:00 98.2 74 25 132/70 (90) 96 07/24/18 16:00 50 07/24/18 15:28 61 20 99 Facial 50 07/24/18 15:00 67 18 125/74 (91) 99 07/24/18 14:00 73 13 95/46 (62) 100 07/24/18 13:08 65 24 99 Facial 50 07/24/18 13:00 72 19 135/104 (114) 92 07/24/18 12:00 50 07/24/18 12:00 70 07/24/18 12:00 Bi-pap 07/24/18 12:00 98.0 77 18 135/72 (93) 98 Status: awake, other - morbidly obese Condition: improving HEENT: atraumatic, normocephalic Neck: full ROM Lungs: clear Heart: HR/BP stable Abdomen: soft, non-tender, active bowel sounds Extremities: other - Chronic LE lymphedema Blood Sugars: BS controlled Critical Care - Subjective ROS Limited/Unobtainable: Yes ICU Day: 3 Intubation Day: NA Interval Events: Gas exchange improved 7.35/85/107/46/98/16 Awake and alert On 2L was on BiPAP ON + SOB no cough no CP no FC Condition: improving IV Access: peripheral EKG Rhythm: Sinus Rhythm FI02: 50 Vent Support Mode: BiLevel Sputum Amount: None I&O: Intake and Output 07/24/18 07/25/18 19:00 07:00 Intake Total 550 ml 1100 ml Output Total 2000 ml 2700 ml Balance -1450 ml -1600 ml IV Total 550 ml 1100 ml Output Urine Total 2000 ml 2700 ml Subjective: Awake and alert now, no distress Labs: Laboratory Tests Test 07/24/18 18:00 07/24/18 19:20 Arterial Blood pH 7.354 (7.350-7.450) Arterial Blood Partial Pressure CO2 85.1 mmHg (35.0-45.0) *H Arterial Blood Partial Pressure O2 107.9 mmHg (75.0-100.0) H Arterial Blood HCO3 46.4 mmol/L (22.0-26.0) *H Arterial Blood Oxygen Saturation 98.1 % (95-100) Arterial Blood Base Excess 16.3 (-2-2) *H Peter Test Positive Vancomycin Level Trough 12.8 ug/mL (5.0-12.0) H Wiliam Bowers MD Jul 25, 2018 11:41
--- NOTE | 2018-07-25 12:00 | NUR ---
NURSE NOTES: Patient has family at bedside. Needs to loose weight due to hypoventilation.
--- NOTE | 2018-07-25 14:00 | NUR ---
NURSE NOTES: Patient has been bathed and is able to pull himself up.
--- NOTE | 2018-07-25 15:38 | General Progress Note ---
Assessment/Plan Problem List: (1) CHF exacerbation ICD Codes: I50.9 - Heart failure, unspecified SNOMED: 93827476, 263815564, 096739658 Qualifiers: Qualified Codes: I50.43 - Acute on chronic combined systolic (congestive) and diastolic (congestive) heart failure (2) Morbid obesity ICD Codes: E66.01 - Morbid (severe) obesity due to excess calories SNOMED: 075750691 (3) Hypertension ICD Codes: I10 - Essential (primary) hypertension SNOMED: 12479073 (4) CO2 retention ICD Codes: E87.2 - Acidosis SNOMED: 68670387, 298315065 (5) Diabetes mellitus ICD Codes: E11.9 - Diabetes mellitus SNOMED: 76139256 (6) Obesity hypoventilation syndrome ICD Codes: E66.2 - Morbid (severe) obesity with alveolar hypoventilation SNOMED: 010801764 Assessment/Plan off BIPAP diuresis abxs Discussed with RN and Dr Bowers follow labs discussed with pt for need to lose weight again Subjective Allergies: Coded Allergies: No Known Allergies (Unverified , 02/15/15) Subjective on BIPAP Objective Last 24 Hour Vital Signs Date Time Temp Pulse Resp B/P (MAP) Pulse Ox O2 Delivery O2 Flow Rate FiO2 07/25/18 11:00 84 129/62 (84) 99 07/25/18 10:00 84 112/68 (83) 99 07/25/18 09:00 77 99/55 (70) 99 07/25/18 08:00 2.0 07/25/18 08:00 98.7 65 132/69 (90) 99 07/25/18 08:00 Bi-pap 07/25/18 07:42 68 2 98 Facial 50 07/25/18 07:00 68 113/81 (92) 99 07/25/18 06:00 69 29 137/84 (101) 100 07/25/18 05:00 66 24 142/86 (104) 100 07/25/18 04:58 65 21 100 Facial 50 07/25/18 04:00 50 07/25/18 04:00 Bi-pap 07/25/18 04:00 98.4 65 19 142/87 (105) 99 07/25/18 03:51 64 07/25/18 03:00 69 21 129/75 (93) 100 07/25/18 02:43 66 18 100 Facial 50 07/25/18 02:00 65 19 138/77 (97) 99 07/25/18 01:00 68 21 123/78 (93) 98 07/25/18 00:40 63 17 100 Facial 50 07/25/18 00:00 Bi-pap 07/25/18 00:00 98.6 64 26 133/86 (102) 96 07/24/18 23:53 64 07/24/18 23:08 64 18 99 Facial 50 07/24/18 23:00 70 23 127/72 (90) 99 07/24/18 22:00 62 23 125/75 (92) 99 07/24/18 21:22 61 24 100 Facial 50 07/24/18 21:00 71 18 124/73 (90) 99 07/24/18 20:55 67 12 120/73 (89) 100 07/24/18 20:00 98.4 69 15 122/100 (107) 100 07/24/18 20:00 Bi-pap 07/24/18 20:00 50 07/24/18 20:00 65 07/24/18 19:28 71 18 141/77 (98) 100 07/24/18 19:00 65 18 100 07/24/18 18:45 69 25 99 Facial 50 07/24/18 18:00 69 17 137/63 (87) 100 07/24/18 17:00 68 23 134/77 (96) 98 07/24/18 16:46 61 25 99 Facial 50 07/24/18 16:00 Bi-pap 07/24/18 16:00 98.2 07/24/18 16:00 74 07/24/18 16:00 98.2 74 25 132/70 (90) 96 07/24/18 16:00 50 Intake and Output 07/24/18 07/25/18 19:00 07:00 Intake Total 550 ml 1100 ml Output Total 2000 ml 2700 ml Balance -1450 ml -1600 ml IV Total 550 ml 1100 ml Output Urine Total 2000 ml 2700 ml Laboratory Tests 07/24/18 18:00: Arterial Blood pH 7.354, Arterial Blood Partial Pressure CO2 85.1*H, Arterial Blood Partial Pressure O2 107.9H, Arterial Blood HCO3 46.4*H, Arterial Blood Oxygen Saturation 98.1, Arterial Blood Base Excess 16.3*H, Peter Test Positive 07/24/18 19:20: Vancomycin Level Trough 12.8H Height (Feet): 6 Height (Inches): 2.00 Weight (Pounds): 680 Cardiovascular: normal rate Respiratory/Chest: lungs clear Edema: 4+ Generalized Mayco Bland MD Jul 25, 2018 15:38
--- NOTE | 2018-07-25 16:16 | NUR ---
CASE MANAGEMENT:REVIEW 07/25/18 SI: AC/CHR RESPIRATORY FAILURE T 98.7 HR 65 RR 29 BP 129/62 SAT 99% BIPAP 20/5 PH-7.28 PCO2+95.0 HC03+43.7 IS: IV VANCOMYCIN Q8HRS HEPARIN SQ Q12 ASA PO QD PEPCID PO QD : ICU STATUS DCP: PATIENT IS FROM HOME PLAN: NPO
--- NOTE | 2018-07-25 19:20 | NUR ---
PT. RECEIVED ON 3LPM N/C WITH A LOW SATURATION OF 86% TO 88%. PT WAS PLACED ON BIPAP WITH CURRENT ORDERS. PT IS CURRENTLY ON A FACIAL MASK. MASK AND BIPAP CIRCUIT SECURELY IN PLACE. SPONGE TAPE IN PLACE AND NO SIGN OF REDNESS OR SKIN BREAKDOWN ARE NOTED AT THIS TIME. PT. SATURATION OF BIPAP IS 94% TO 98%. ALL VS WNL. WILL CONTINUE TO MONITOR.
--- NOTE | 2018-07-25 19:30 | NUR ---
NURSE NOTES: Report received from JUAN Hook. Pt awake and alert x4, in no acute distress. VS stable. Pt connected to cardiac cath technician, SR. Pt on Bipap 10/07, with 50%, O2 saturating 100%. Pt on regular diet. Paige 16hr draining clear yellow urine. LFA 20G heplock noted and intact. Good appetite, finished 100% his dinner tray. Safety measures in place with bed locked and in lowest position, side rails x3 up, and call light within reach. Will continue to monitor and continue plan of care.
--- NOTE | 2018-07-25 20:16 | Cardiology Progress Note ---
Assessment/Plan Assessment/Plan obstructive sleep apnea, obesity hypoventilation syndrome, possible CHF. Will follow his echo Subjective Subjective the patient is off Bipap, alert, visitors at the bedside Objective Last 24 Hour Vital Signs Date Time Temp Pulse Resp B/P (MAP) Pulse Ox O2 Delivery O2 Flow Rate FiO2 07/25/18 19:00 94 151/118 (129) 99 07/25/18 18:00 90 158/100 (119) 99 07/25/18 17:00 85 151/118 (129) 99 07/25/18 16:00 86 07/25/18 16:00 85 119/86 (97) 99 07/25/18 16:00 2.0 07/25/18 16:00 Bi-pap 07/25/18 15:00 85 129/75 (93) 99 07/25/18 14:00 85 129/75 (93) 99 07/25/18 13:00 86 104/60 (75) 99 07/25/18 12:00 Bi-pap 07/25/18 12:00 99.0 68 132/69 (90) 99 07/25/18 12:00 83 07/25/18 12:00 2.0 07/25/18 11:00 84 129/62 (84) 99 07/25/18 10:00 84 112/68 (83) 99 07/25/18 09:00 77 99/55 (70) 99 07/25/18 08:00 2.0 07/25/18 08:00 98.7 65 132/69 (90) 99 07/25/18 08:00 63 07/25/18 08:00 Bi-pap 07/25/18 07:42 68 2 98 Facial 50 07/25/18 07:00 68 113/81 (92) 99 07/25/18 06:00 69 29 137/84 (101) 100 07/25/18 05:00 66 24 142/86 (104) 100 07/25/18 04:58 65 21 100 Facial 50 07/25/18 04:00 50 07/25/18 04:00 Bi-pap 07/25/18 04:00 98.4 65 19 142/87 (105) 99 07/25/18 03:51 64 07/25/18 03:00 69 21 129/75 (93) 100 07/25/18 02:43 66 18 100 Facial 50 07/25/18 02:00 65 19 138/77 (97) 99 07/25/18 01:00 68 21 123/78 (93) 98 07/25/18 00:40 63 17 100 Facial 50 07/25/18 00:00 Bi-pap 07/25/18 00:00 98.6 64 26 133/86 (102) 96 07/24/18 23:53 64 07/24/18 23:08 64 18 99 Facial 50 07/24/18 23:00 70 23 127/72 (90) 99 07/24/18 22:00 62 23 125/75 (92) 99 07/24/18 21:22 61 24 100 Facial 50 07/24/18 21:00 71 18 124/73 (90) 99 07/24/18 20:55 67 12 120/73 (89) 100 General Appearance: lethargic EENT: PERRL/EOMI Neck: other - cannot determine JVD Rhythm: NSR, ST Cardiovascular: regular rhythm, tachycardia Respiratory/Chest: rhonchi - bilaterally Abdomen: distended Extremities: moderate edema Intake and Output 07/24/18 07/25/18 19:00 07:00 Intake Total 550 ml 1100 ml Output Total 2000 ml 2700 ml Balance -1450 ml -1600 ml IV Total 550 ml 1100 ml Output Urine Total 2000 ml 2700 ml Laboratory Tests Test 07/25/18 17:00 Vancomycin Level Trough 20.7 ug/mL (5.0-12.0) H Tania Saunders MD Jul 25, 2018 20:16
--- NOTE | 2018-07-25 22:00 | NUR ---
NURSE NOTES: Pt's resting in bed, asleep, with eyes closed, in no acute distress. VS stable. Will continue to monitor.
[2018-07-26] VITALS (12 sets, daily range): BP systolic 106–148; BP diastolic 62–113
--- NOTE | 2018-07-26 | NUR ---
NURSE NOTES: Pt's resting in bed, asleep, with eyes closed, in no acute distress. VS stable. Will continue to monitor.
--- NOTE | 2018-07-26 02:00 | NUR ---
NURSE NOTES: Pt's resting in bed, asleep, with eyes closed, in no acute distress. VS stable. Will continue to monitor.
--- NOTE | 2018-07-26 04:00 | NUR ---
NURSE NOTES: Pt's resting in bed, asleep, in no acute distress. VS stable. Will continue to monitor.
[2018-07-26] MEDS: Vancomycin 2gm/D5W 550ml IVPB SCH ×2 (04:28)
--- NOTE | 2018-07-26 05:15 | NUR ---
RESPIRATORY NOTE: PT. STABLE ON BIPAP WITH CURRENT SETTING. CIRCUIT SECURE AND OUT OF THE WAY. SPONGE TAPE IN PLACE. NO REDNESS OR SKIN BREAKDOWN NOTED. NO S/S OF RESPIRATORY DISTRESS NOTED AT THIS TIME.
[2018-07-26 05:43] LABS: BASOPHILS % (AUTO) 1.1 % (0.0-2.0); EOSINOPHILS % (AUTO) 1.9 % (0.0-3.0); HEMATOCRIT 44.6 % (42.0-52.0); HEMOGLOBIN 13.9 G/DL (14.2-18.0); LYMPHOCYTES % (AUTO) 15.3 % (20.0-45.0); MEAN CORPUSCULAR VOLUME 74 FL (80-99); MONOCYTES % (AUTO) 8.3 % (1.0-10.0); NEUTROPHILS % (AUTO) 73.5 % (45.0-75.0); PLATELET COUNT 238 K/UL (150-450); RED BLOOD COUNT 6.04 M/UL (4.70-6.10); RED CELL DISTRIBUTION WIDTH 15.3 % (11.6-14.8); WHITE BLOOD COUNT 9.1 K/UL (4.8-10.8)
[2018-07-26 05:55] LABS: ANION GAP 2 mmol/L (5-15); BLOOD UREA NITROGEN 15 mg/dL (7-18); CALCIUM 9.2 MG/DL (8.5-10.1); CARBON DIOXIDE 38 MMOL/L (21-32); CHLORIDE 99 MMOL/L (98-107); CREATININE 0.8 MG/DL (0.55-1.30); POTASSIUM 5.1 MMOL/L (3.5-5.1); SODIUM 139 MMOL/L (136-145)
--- NOTE | 2018-07-26 06:00 | NUR ---
NURSE NOTES: Pt's resting in bed, asleep, in no distress. VS stable. Continue with Bipap / 55%, O2 sat at 95%. Will continue to monitor.
--- NOTE | 2018-07-26 07:13 | NUR ---
HAND-OFF: Report given to JUAN Smith.
--- NOTE | 2018-07-26 07:20 | NUR ---
NURSE NOTES: Report received from JUAN Mckenna. Patient is observed to be resting comfortably in his bed. Patient is easily awoken, is awake and alert x4. Patient is not in any respiratory or acute distress. Patient is able to verbalize his needs, follow commands and reports that he is not in any pain. Patient reports that he is currently hungry, Patient is being monitored on the autistic teacher in SR. VS 110/56, HR 81, RR 26 SPO2 96%. Patient is on a BIPAP / on 50% and tolerating well. Upon auscultation, breath sounds are rhonchi. Patient has asked for a toothbrush and toothpaste to perform his own ADLs. Patient has a Paige draining yellow urine with sediment to gravity. Patient has a LFA 20G heplock TKO that is intact and patent. Safety measures are in place with bed locked and in lowest position, side rails x3 up, and call light within reach. Will continue to monitor and continue plan of care.
--- NOTE | 2018-07-26 07:30 | NUR ---
RESPIRATORY NOTE: PT. STABLE ON BIPAP WITH CURRENT SETTIN/- BACK UP RATE 16-50% FiO2. CIRCUIT SECURE AND OUT OF THE WAY. SPONGE TAPE IN PLACE. NO REDNESS OR SKIN BREAKDOWN NOTED. READJUST THE MASK TO PREVENT SKIN BREAKDOWN. NO S/S OF RESPIRATORY DISTRESS NOTED AT THIS TIME. WILL CONTINUE TO MONITOR PT. ALARMS ARE SET AND AUDIBLE, BIPAP IS PLUGGED INTO THE RED OUTLET, AMBU BAG IS AT BEDSIDE.
--- NOTE | 2018-07-26 08:13 | NUR ---
Regarding V/Q Scan: Pt far exceeds weight limit on nuclear medicine scanner. Scan cannot be done. Informed JUAN Smith.
--- NOTE | 2018-07-26 10:00 | NUR ---
NURSE NOTES: Patient was repositioned for comfort with LTA, breakfast tray was removed from room. All morning medications were given. Patient is not in any acute distress. VSS. Patient is on O2 NC. Will continue to monitor and follow plan of care.
[2018-07-26] MEDS: Aspirin Baby 81mg ORAL SCH (10:36)
[2018-07-26] MEDS: Heparin 5000 units/ml inj SUBQ SCH (10:38)
--- NOTE | 2018-07-26 11:46 | NUR ---
P.T Note : late entry 1110 Order to continue P.T received. Order acknowledged. Spoke with RN , ETIENNE for OOB activities . Pt seen at bedside, alert , oriented to x4 and cooperative. Neuro checked and remained intact. ROM and MMT are WNL. Pt was able to perform Bed mobility : supine to sit and rolling with MIN A X 1 , was able to sit at the EOB w/o support . Pt was able to rise from sitting to stand and vice versa with CGA. Pt was able to stand with hand held assist, no c/o dizziness and then performed transfers OOB to commode with CGA X 1. Pt reported c/o dizziness after sitting in the commode for less than 1 min then immediately assisted back to bed. While assisting pt back to bed , patient became unresponsive ,nursing staff immediately called. Pt then became fully responsive after more than 1 min. Neuro re checked and remained intact however pt continue desaturating. Left patient with nursing and RT at bedside.
[2018-07-26] MEDS ORDERED: Alteplase 100mg Inj ONE (12:08)
[2018-07-26] MEDS ORDERED: Sodium Bicarbonate 50ml Carp ONE (12:09)
[2018-07-26] MEDS ORDERED: D5W 275ml ONE (12:09)
[2018-07-26] MEDS ORDERED: NS 275ml ONE (12:09)
[2018-07-26] MEDS ORDERED: Calcium Chloride 10% 10ml carpuject IVP ONE (12:09)
[2018-07-26] MEDS ORDERED: Atropine Inj 1mg/10ml Syr ONE (12:09)
--- NOTE | 2018-07-26 12:10 | NUR ---
RESPIRATORY NOTE: Got a call to put pt back on Bipap due to desaturation low 70%. Put pt on Bipap, same current setting, be able to bring saturation back up to 100%, but pt was tachypneic RR >40 bpm, RN Sarah and I were trying to calm the patient down, pt was able to breathing slower, down to high 30s RR. Suddenly, pt went to bradycardia and then no pulses. Terrence valdovinos was called at 1130, RN started compression and I started to bag the pt right away. Pt was intubated per anesthesiologist with ETT size 8 at 25cm lips line, secured with anchor fast, alberto breath sounds auscultated, CO2 detector changed from purple to yellow. Dr. Bowers pronounced pt at 1210.
--- NOTE | 2018-07-26 12:22 | Pulmonolgy Critical Care Note ---
Critical Care - Asmt/Plan Problems: (1) Patient pronounced (2) Lymphedema (3) Pulmonary hypertension (4) DANII (obstructive sleep apnea) (5) Acute on chronic respiratory failure with hypoxia and hypercapnia (6) Obesity hypoventilation syndrome (7) Obesity (8) CO2 retention (9) Leukocytosis (10) Cellulitis of lower leg (11) Diabetes mellitus (12) Hypertension Assessment/Plan: ASSESSMENT: The patient is a 48-year-old male with a history of morbid obesity , DANII, noncompliant with CPAP, congestive heart failure, hypertension, hyperlipidemia with a history of medication noncompliance, presenting with shortness of breath in the setting of decompensated heart failure. He has evidence of a chronic respiratory failure secondary to his untreated DANII/ obesity hypoventilation. PROBLEM LIST: 1. Chronic hypercapnic respiratory failure. 2. Hypoxemia secondary to above. 3. DANII, noncompliant with CPAP. 4. CHF, admitted with decompensated heart failure. 5. Morbid obesity. 6. Likely obesity, hypoventilation. 7. Hypertension, hyperlipidemia. 8. History of medication noncompliance. 9. Leukocytosis. 10. LE lymphedema 11. Likely superimposed cellulitis 12. Pulmonary HTN TREATMENT PLAN: See code blue note Time of 12:30 Events of day noted in CC note CCT 45 min Critical Care - Objective Last 24 Hour Vital Signs Date Time Temp Pulse Resp B/P (MAP) Pulse Ox O2 Delivery O2 Flow Rate FiO2 07/26/18 11:00 95 07/26/18 10:06 86 31 95 Facial 50 07/26/18 09:00 79 25 114/69 (84) 95 07/26/18 08:45 83 16 93 07/26/18 08:00 98.8 82 22 122/95 (104) 96 07/26/18 07:30 81 29 97 Facial 50 07/26/18 07:00 84 24 120/74 (89) 96 07/26/18 06:00 79 26 115/62 (79) 95 07/26/18 05:15 83 28 97 Facial 50 07/26/18 05:00 98.9 77 36 148/84 (105) 97 07/26/18 04:00 Bi-pap 07/26/18 04:00 83 33 136/113 (121) 98 07/26/18 04:00 75 07/26/18 04:00 50 07/26/18 03:10 75 32 96 Full Face 50 07/26/18 03:00 84 35 145/93 (110) 98 07/26/18 02:00 82 35 128/63 (84) 95 07/26/18 01:49 89 28 95 Full Face 50 07/26/18 01:19 85 20 93 07/26/18 01:00 82 25 121/66 (84) 98 07/26/18 00:00 74 25 117/69 (85) 99 07/26/18 00:00 79 07/26/18 00:00 Bi-pap 07/26/18 00:00 50 07/25/18 23:16 80 32 100 Facial 50 07/25/18 23:00 82 36 111/58 (75) 98 07/25/18 22:00 81 31 137/81 (99) 98 07/25/18 21:10 81 30 97 Facial 50 07/25/18 21:00 79 27 138/80 (99) 99 07/25/18 20:00 98.9 85 29 160/109 (126) 99 07/25/18 20:00 Bi-pap 07/25/18 20:00 85 07/25/18 20:00 50 07/25/18 19:20 90 39 96 Facial 50 07/25/18 19:00 94 151/118 (129) 99 07/25/18 18:00 90 158/100 (119) 99 07/25/18 17:00 85 151/118 (129) 99 07/25/18 16:00 86 07/25/18 16:00 85 119/86 (97) 99 07/25/18 16:00 2.0 07/25/18 16:00 Bi-pap 07/25/18 15:00 85 129/75 (93) 99 07/25/18 14:00 85 129/75 (93) 99 07/25/18 13:00 86 104/60 (75) 99 Objective: No HS or BS Pupils fixed and dilated Critical Care - Subjective ROS Limited/Unobtainable: Yes ICU Day: 4 Intubation Day: 1 Interval Events: Per report patient was on BiPAP ON, awake and alert this am, got up to work with PT, then felt dizzy and got back into bed, his SaO2 dropped, he was placed back on BiPAP, then ALOC PEA noted Code blue called 11:30 am ER MD and anesthesia arrived I arrived @ 11:45 while the patient was being intubated I relived ER MD shortly thereafter In total: EPI x 5 Atropine x 1 HCO3 x 2 Amio 300 x 1 CaGl x 1 He had b BS but was in asystole throughout the code Ultimately I elected to give IV tPA At 12:30 we ceased recussitation efforts, all were in agreement Patient was asystole, no HS or BS, pupils were fixed and dillated Condition: other - FI02: 50 Vent Support Mode: BiLevel Sputum Amount: None I&O: Intake and Output 07/25/18 07/26/18 19:00 07:00 Intake Total 300 ml 1475 ml Output Total 2200 ml 1200 ml Balance -1900 ml 275 ml Intake Oral 300 ml 100 ml IV Total 1375 ml Output Urine Total 2200 ml 1200 ml Subjective: Awake and alert now, no distress Wiliam Bowers MD Jul 26, 2018 12:22
--- NOTE | 2018-07-26 12:30 | NUR ---
NURSE NOTES: Patient requested to get up to use the restroom not the bedpan. PT was here. An order was placed for an eval. Patient was able to sit up at the edge of the bed, dangle his feet without incident. Patient got up out of bed and stood however patient began to feel faint despite the O2 NC that he had. Patient was immediately returned to the bed when he apparently went LOC for a very brief moment. PT and the FRUIT HARVESTER MACHINE OPERATOR safely got him in the bed however patient began to desat. Patient was awake and alert and out of breath. Vitals were taken. RT and RN were in the room. Patient was stabilized for a moment while readjusting himself in the bed.
--- NOTE | 2018-07-26 12:48 | NUR ---
CASE MANAGEMENT: REVIEW SI: CHF EXACERBATION . SYNCOPE T 98.8 HR 79 RR 31 BP 114/69 SAT 95 BIPAP FIO2 50 CO2 38 IS: VANCO IV Q8HR HEPARIN SQ Q12HR ASA PO QD ICU STATUS DCP: PATIENT IS FROM HOME
--- NOTE | 2018-07-26 12:52 | NUR ---
NURSE NOTES: RT and RN were monitoring patient very closely. Patient became tachypneic. Patient was immediately returned to BIPAP. VS and SPO2 did stabilize for a brief moment, however, patient went LOC and a CODE BLUE was called when patient's HR went SB to 30s then asystole. CPR was immediately started by RN and RT began bagging the patient. All attempts to revive the patient were attempted. CPR began 1130. Patient at 1210. [employer] was called ([id number].) Practical Nurse Clinical Coordinator was also called. Family was called, MDs were called. Patient's family is at bedside.
--- NOTE | 2018-07-26 16:01 | Emergency Room Report ---
History of Present Illness General Chief Complaint: Pain Source: Patient Present Illness Allergies: Coded Allergies: No Known Allergies (Unverified , 02/15/15) Nursing Documentation-[facility] Past Medical History: No History, Except For Hx Cardiac Problems: Yes Hx Hypertension: Yes Hx Diabetes: Yes - Borderline Hx Cancer: No Hx Gastrointestinal Problems: Yes Hx Neurological Problems: No Physical Exam Vital Signs Date Time Temp Pulse Resp B/P (MAP) Pulse Ox O2 Delivery O2 Flow Rate FiO2 07/22/18 08:00 98.2 89 24 131/94 (106) 90 07/22/18 09:00 Nasal Cannula 2.0 07/22/18 13:00 30 Procedures Critical Care Time Critical Care Time i. I feel this is a highly complex case requiring extensive working including EKG/Rhythm strip, Xray/CT/US, Blood/urine lab work, repeat exams while in ED, and administration of strong opiates/narcotics for pain control, admission to hospital or close patient follow up. Total time: 30 min bedside evaluation and treatment excludes procedures (EKG). Reason for critical care: cardiac arrest Possible complications: hypotension, hypertension, ID, shock, arrhythmias, metabolic acidosis, end organ damage, respiratory failure. Interventions: chest compressions, epinephrine, intubation Course: patient became unresponsive, asystole. chest compression started. given epinephrine. due to massive body habitus - intubated by anesthesiologist at bedside. chest compressions continued. Dr Bowers at bedside. he resumed care. currently in asystole. Consultations: nursing staff, EMS, family Performed by: Dr Wallace Tolerated well condition = critical j. because of unstable vital signs this patient had a condition that could potentially threaten life or limb. I feel this is a critical patient who required my full attention while patient was considered critical. Total Critical Care Time excluding procedures was greater than 35 minutes CPR/Code Blue CPR/Code Blue Narrative see code blue sheet for full narrative Medical Decision Making Diagnostic Impression: Primary Impression: CHF exacerbation Qualified Codes: I50.43 - Acute on chronic combined systolic (congestive) and diastolic (congestive) heart failure Additional Impressions: Morbid obesity Leukocytosis Qualified Codes: D72.829 - Elevated white blood cell count, unspecified CO2 retention Syncopal episodes Qualified Codes: R55 - Syncope and collapse Elevated troponin ER Course I was called to this CODE BLUE in the ICU. Patient became unresponsive and asystole upon my arrival. Chest compressions started. Epinephrine given 1 initially. Patient weighs nearly 700 pounds. Due to morbid body habitus patient was intubated by anesthesia. Patient continued to receive chest compressions and epinephrine. Rhythm checks intermittently showed asystole versus PEA. Dr Bowers is the warehouse shift supervisor for the patient and he is at bedside. He insisted on resuming care of the CODE BLUE. Patient remains in asystole upon my departure. Prognosis is poor/critical Last Vital Signs Date Time Temp Pulse Resp B/P (MAP) Pulse Ox O2 Delivery O2 Flow Rate FiO2 07/26/18 11:00 101 48 120/85 (97) 73 07/26/18 10:06 Facial 50 07/26/18 08:00 98.8 07/25/18 16:00 2.0 Status: improved Disposition: ADMITTED INPATIENT Condition: Critical Referrals: ONEYDA BHATTI,REFERRING (PCP) Raciel Wallace MD Jul 26, 2018 16:01
--- NOTE | 2018-07-28 11:49 | Discharge Summary ---
Discharge Summary Discharge Summary _ SUMMARY DATE OF ADMISSION: 07/21/2018 DATE OF EXPIRATION: 07/26/2018 REASON FOR ADMISSION: 48 years old male with past medical history of congestive heart failure, obstructive sleep apnea, hypertension, hyperlipidemia, morbid obesity, with pickwickian appearance , presented to emergency department with shortness of breath for few days and bilateral leg edema. Patient also reported pain in bilateral legs with ambulation. Patient reported noncompliance with his medication for congestive heart failure. Upon evaluation in emergency department vital signs were stable. Pulse oximetry was 92% on room air. Laboratory workup revealed leukocytosis WBC 16.4 , stable hemoglobin hematocrit with shift to the left. Initial ABG on 3 L of oxygen via nasal cannula revealed evidence of hypercapnia with PCO2 73 and hypoxia with PO2 of 86, pH 7.34. Troponin elevated 0.065. EKG revealed sinus rhythm , no acute ischemic changes , right bundle branch block. Pro BNP 2048. BUN 25 creatinine 1.2 , CO2 29 Lactic acid 2.4 Chest x-ray revealed mild pulmonary vascular congestion. In emergency department patient received 1 dose of Aspirin and 1 dose of diuretic. Patient was admitted to ICU for further management. CONSULTANTS: research subject Dr. Angel pulmonary [facility] COURSE: 48 years old male with history of morbid obesity, obstructive sleep apnea, noncompliance with CPAP, congestive heart failure, hypertension, hyperlipidemia , history of medication noncompliance, presented for shortness of breath and peripheral leg edema l in the setting of decompensated heart failure. Patient also exhibited evidence of chronic respiratory failure secondary to untreated obstructive sleep apnea and probable obesity hypoventilation syndrome. Patient was admitted to intensive care unit. Patient started on diuretic with close monitoring of volumes and cardiorenal parameters, likely component of preload dependance. Patient started on the BiPAP as per car dealer. Compliance was encouraged. Patient was on antiplatelet therapy with aspirin. DVT prophylaxis provided. Patient started on empiric antibiotics for superimposed cellulitis bilateral lower extremity. Nitroglycerin was on board as needed. GI prophylaxis provided. Blood pressure was managed with JASON inhibitor. Patient was followed up with ABGs. Bipap setting were uptitrated based on results of ABG. D-dimer was elevated, but nonspecific finding, given morbid obesity. Unable to do CTA chest and VQ scan , given morbid obesity. Venous Duplex was incomplete due to patient's size , but preliminary was negative for evidence of acute DVT. Per car dealer, no need for intubation since patient had chronic respiratory acidosis. Patient was anticipated to be set up with outpatient NIPPV . [employer] followed. Patient had no chest pain. Patient was followed-up with serial troponin and EKG. Next two troponin were negative. Echocardiogram revealed preserved ejection fraction of 70-75%. No wall motion abnormality to the extent visualized. Moderate left ventricular hypertrophy. Right ventricular systolic pressure of 44 consistent with mild pulmonary hypertension. Patient was on antibiotic for superimposed cellulitis bilateral lower extremities. Blood culture and influenza screen test were negative. Leukocytosis,resolved, no fevers. On 07/26 patient became desaturated with pulse oximetry in the low 70s. Patient was placed back on BiPAP by respiratory therapy , saturation was brought back to near 100, however patient remained tachycardic tachypneic with respiratory rate over 40. Patient suddenly became bradycardic and lost pulses. CODE BLUE was called at 11:30. ACLS protocol was initiated. Patient subsequently was orally intubated . Patient was given tPA /Alteplase for possible NC/PE during code. Despite all interventions, patient demonstrated cardiac unresponsiveness. Patient subsequently was pronounced at 12:30. Cause of presumed to be arrhythmia as a result of acute myocardial infarction FINAL DIAGNOSES Acute on chronic respiratory failure with hypoxia and hypercapnia CHF exacerbation, right sided Likely obesity hypoventilation syndrome Obstructive sleep apnea Noncompliance with CPAP Pulmonary hypertensin Lymphedema bilateral lower extremity with superimposed cellulitis Morbid obesity Hyperlipidemia Hypertension Noncompliance with medication I have been assigned to dictate discharge summary for this account. I was not involved in the patient's management. Meghan Ruffin NP Jul 28, 2018 11:49
== END 2018-07-26 12:10 | disposition expired | DRG 194 ==
LOC: EMR 17:45 → EDBEDREQ 22:04 → 2W 22:37 → EDBEDREQ 22:52 → 2W 07-22 19:57 → ICU 07-23 19:05
PROC: 5A1945Z Respiratory Ventilation, 24-96 Consecutive Hours (ICD-10-PCS; principal; 2018-07-22)
PROC: 5A12012 Performance of Cardiac Output, Single, Manual (ICD-10-PCS; 2018-07-26)
PROC: 0BH17EZ Insertion of Endotracheal Airway into Trachea, Via Natural or Artificial Opening (ICD-10-PCS; 2018-07-26)
DX: I11.0 Hypertensive heart disease with heart failure (principal); J96.21 Acute and chronic respiratory failure with hypoxia; I21.9 Acute myocardial infarction, unspecified; I27.20 Pulmonary hypertension, unspecified; E66.2 Morbid (severe) obesity with alveolar hypoventilation; E87.2 Acidosis; Z68.45 Body mass index [BMI] 70 or greater, adult; I50.23 Acute on chronic systolic (congestive) heart failure; Z91.19 Patient's noncompliance with other medical treatment and regimen; E11.9 Type 2 diabetes mellitus without complications; I89.0 Lymphedema, not elsewhere classified; J96.22 Acute and chronic respiratory failure with hypercapnia
CPT/HCPCS: 36415; 36600; 71045; 80048; 80053; 80061; 80202; 81003; 82248; 82550; 82553; 82803; 82962; 83605; 83880; 84484; 85025; 85379; 86140; 86710; 87040; 92950; 93005; 93306; 94660; 96365; 96372; 96375; 96376; 99285; J0171; J0282